=== PATIENT | male | born 1980 | race Caucasian/White ===

== ENCOUNTER 2017-08-21 14:55 | Emergency (ER) | payer OTHER, SELFPAY | END 2017-08-21 18:56 | disposition left against medical advice (07) | PROVIDERS: Emergency Provider Emergency Medicine; Visit Provider Emergency Medicine | DX: K57.32 Diverticulitis of large intestine without perforation or abscess without bleeding (principal); Z88.6 Allergy status to analgesic agent; F17.210 Nicotine dependence, cigarettes, uncomplicated; K59.01 Slow transit constipation | CPT/HCPCS: 36415; 74022; 74177; 80053; 81001; 83690; 85025; 87040; 87086; 96365; 96367; 96375; 96376; 99284; J1335; Q9967 ==

== ENCOUNTER 2017-08-22 18:46 | Observation (INO) | payer OTHER, SELFPAY | END 2017-08-23 13:54 | disposition home or self-care (01) | PROVIDERS: Admitting Provider Internal Medicine Adolescent Medicine; Emergency Provider Emergency Medicine; Visit Provider Internal Medicine Adolescent Medicine | DX: K57.92 Diverticulitis of intestine, part unspecified, without perforation or abscess without bleeding (principal); Z72.0 Tobacco use | CPT/HCPCS: 80053; 81001; 83690; 85025; 96365; 96375; 99285; G0378; J1956; J2405 ==

== ENCOUNTER 2019-12-12 12:00 | Emergency (ER) | payer OTHER, SELFPAY ==
[2019-12-12 12:01] VITALS: BP 131/75; PULSE 96; RESP 18; TEMP 36.8; O2SAT 98; BMI 41.1
--- NOTE | 2019-12-12 12:20 | CT_ITS ---
PROCEDURE: CT ABDOMEN PELVIS WO CON CLINICAL INDICATION: ABD PAIN COMPARISON: ABDPELW/O CT ABD PELVIS W/O CONTRAST from 09/29/[address] ABD PELVIS W/ CONTRAST from 08/21/2017 TECHNIQUE: Axial images obtained with sagittal and coronal reformats. All CT scans at the facility use one or more dose reduction, viz: automated exposure control, ma/kV adjustment per patient size (including targeted exams where dose is matched to indication, i.e. head), or iterative reconstruction technique. FINDINGS: LOWER THORAX: No acute finding ABDOMEN & PELVIS: Fatty liver. No focal liver lesion evident. The gallbladder adrenal glands, and pancreas have an unremarkable unenhanced CT appearance. There are 2 small hypodensities of the spleen at 4 and 6 mm. These are nonspecific. No renal or ureteral calculi. No hydronephrosis. No evidence of appendicitis. There is diverticulosis of the sigmoid colon. There is minimal haziness of the pericolic fat. Some of this could be scarring from prior diverticulitis as seen on 08/21/2017. Mild acute diverticulitis is also considered. No abscess or perforation. No acute bony findings. IMPRESSION: Do that all the 1. Sigmoid diverticulosis with minimal stranding of the pericolic fat in the central pelvic region slightly eccentric to the left which could be related to scarring or mild diverticulitis. No abscess or perforation. 2. At least 2 small hypodensities of the spleen nonspecific possibly due to small cysts. Dictated by: Shalom Marquez MD 12/12/2019 13:20 Electronically signed by Shalom Marquez MD in [place] 12/12/2019 13:20
[2019-12-12 12:25] LABS: Microscopic, Urine URINE MICROSCOPIC (MICROSCOPIC)
[2019-12-12 12:28] LABS: Basophils # 0.1 K/mm3 (0-0.2); Basophils % 0.6 % (0.1-2.0); Eosinophils # 0.2 K/mm3 (0.0-0.4); Eosinophils % 3.1 % (0.1-12.0); Hematocrit 46.7 % (42.0-52.0); Hemoglobin 15.5 g/dL (14.1-18.0); Lymphocytes % 25.3 % (10-50); Mean Corpuscular HGB Conc 33.3 g/dL (31.8-35.4); Mean Corpuscular Hemoglobin 30.4 pg (27.0-31.2); Mean Corpuscular Volume 91.4 fl (80-94); Mean Platelet Volume 7.3 fl (7.4-10.4); Monocytes # 0.2 K/mm3 (0.1-1.0); Monocytes % 2.7 % (1.7-9.3); Neutrophils # 5.4 K/mm3 (1.8-7.8); Neutrophils % 68.2 % (37.0-80.0); Platelet Count 267 K/mm3 (142-424); Red Blood Count 5.12 M/mm3 (4.60-6.20); Red Cell Distribution Width 14.2 % (11.5-17.5); White Blood Count 7.9 K/mm3 (4.8-10.8)
[2019-12-12 12:33] LABS: Chloride 101 mmol/L (98-107); Potassium 4.3 mmoL/L (3.5-5.1); Sodium 138 mmol/L (136-145)
[2019-12-12 12:36] LABS: Alanine Aminotransferase 56 U/L (12-78); Alkaline Phosphatase 66 U/L (38-126); Amylase 52 U/L (30-110); Anion Gap 13.3 mEq/L (5-15); Aspartate Amino Transferase 41 U/L (17-59); Bilirubin,Total 0.4 mg/dl (0.2-1.3); Blood Urea Nitrogen 11 mg/dl (9-20); Calcium 9.1 mg/dl (8.4-10.2); Carbon Dioxide 28 mmol/L (22.0-30.0); Creatinine Clearance Estimated 228 mL/min (50-200); Estimated Glomerular Filt Rate 94 ml/min (>60); GFR (African American) 114 ML/MIN (>60); Glucose 135 mg/dl (74-100); Lipase 43 U/L (23-300)
[2019-12-12 12:37] LABS: Albumin Level 4.4 g/dl (3.5-5.0); Albumin/Globulin Ratio 1.5 (1.1-1.8); Total Protein,Serum 7.4 g/dl (6.3-8.2)
--- NOTE | 2019-12-12 12:42 | HMH.EDGENADL ---
ED Disposition Clinical Impression: Sigmoid diverticulitis Disposition: Home, Self-Care Condition on Discharge: Good Instructions: DI for Diverticulitis Additional Instructions: Additional instructions for ABDOMINAL PAIN: See your physician as soon as possible for further evaluation. Return immediately if worsening abdominal pain, vomiting, shortness of breath, fever, vomiting of blood or abdominal distention. Additional instructions for CONTROLLED SUBSTANCES: You have been prescribed a medication that is a controlled substance. Controlled substances include pain medications known as opiates and sedative nerve medications known as benzodiazepines. Tramadol, fioricet, and gabapentin are also controlled substances. Some common opiates include: Codeine (such as Tylenol #3) Hydrocodone (Vicodin, Lortab, Lorcet, [place]) Oxycodone (Percocet, Percodan, Oxycodone, Oxy IR) Some common benzodiazepines include: Diazepam (Valium) Lorazepam (Ativan) Alprazolam (Xanax) Clonazepam (Klonopin) Oxazepam (Serax) All of these controlled substances are highly addictive and frequently abused. Misuse can and frequently does lead to addiction as well as overdose and . Medication should be stored in a locked cabinet or other secure storage unit. Do not store the medication in a motor vehicle. Short term supplies, 3 days or less, are prescribed because of the highly addictive nature of the medication. Any of the controlled substance medication NOT taken should be disposed of properly and NOT SAVED. The recommended method of disposing of unused medications is: Place the medicines in a sealable plastic bag. If the medicine is a solid, crush it or add water to dissolve it. Add something undesirable (cat litter, coffee grounds, etc.) Dispose of sealed bag in household trash Do not flush or pour unused medicines down a sink or drain. Controlled substances should not be shared, given away or sold. Because of the addictive nature and frequent abuse, these medications are sometimes stolen. These medications should be kept in a safe place where they cannot be stolen. Do not keep them in your car or purse. Lost or stolen prescriptions for controlled substances WILL NOT BE REFILLED in this emergency department, regardless of whether a police report was filed. Prescriptions: Hydrocod/Acet 5/325 mg [[place] 5/325mg tablet] 1 tab PO Q6HP PRN #10 tab PRN Reason: Pain Transmission Status: Sent to [facility] Ciprofloxacin HCl [Ciprofloxacin 500mg Tab] 500 mg PO BID #20 tab Transmission Status: Pending to [facility] metroNIDAZOLE [Flagyl] 500 mg PO TID #30 tab Transmission Status: Pending to [facility] Referrals: Provider,Referral, [Primary Care Provider] - - Critical Care Critical Care Time: No Attestation: On 12/12/19, the high probability of a clinically significant, sudden or life threatening deterioration of the following system(s) required my full and direct attention, intervention and personal management. The time I documented below is in addition to time spent performing reported procedures but includes the following listed in this critical care notation. Medical Decision Making - Eduardo Inquiry Pt receiving controlled substance: Yes Eduardo was queried for this patient: Yes Reference #:: [id number] Risks and benefits of using a controlled substance: were discussed with pt by me Comment: 1 rx norco, Mar 2019 Vital Signs: 12/12/19 12:01 Temperature 98.2 F Temperature Source Oral Pulse Rate [Right] 96 H Respiratory Rate 18 Blood Pressure [Right Arm] 131/75 Blood Pressure Mean [Right Arm] 93 02 Sat by Pulse Oximetry 98 - Lab Data Lab Results 12/12/19 12:15: Urine Color Yellow, Urine Appearance Clear, Urine pH 6.5, Ur Specific [place] 1.025, Urine Protein Negative, Urine Glucose (UA) Negative, Urine Ketones Negative, Urine Blood 2+, Urine Nitrate Negative, Urine Bili
[2019-12-12 12:45] LABS: Appearance,Urine CLEAR (Clear); Bilirubin,Urine Negative (Negative); Blood, Urine 2+ (Negative); Color,Urine YELLOW (Yellow); Glucose,Urine (UA) Negative (Negative); Ketones,Urine Negative (Negative); Leukocyte Esterase,Urine Negative (Negative); Nitrate,Urine Negative (Negative); PH,Urine 6.5 (5.0-8.5); Protein,Urine Negative (Negative); Specific Gravity, Urine 1.025 (1.005-1.030); Urobilinogen,Urine 0.2 EU/dl (0.2)
--- NOTE | 2019-12-12 12:57 | PC.NURSE ---
Satya salcedo advised pt refused contrast with ct
[2019-12-12 13:31] LABS: Bacteria,Urine Trace /lpf; Squamous Epithelial Cell,Urine Occasional #/hpf (0-5); WBC,Urine Occasional #/hpf (0-3)
[2019-12-12 14:11] VITALS: BP 140/86; PULSE 72; RESP 16; TEMP 36.7; O2SAT 98
== END 2019-12-12 14:14 | disposition home or self-care (01) ==
PROVIDERS: Emergency Provider Emergency Medicine
DX: K57.32 Diverticulitis of large intestine without perforation or abscess without bleeding (principal); F17.210 Nicotine dependence, cigarettes, uncomplicated; I10 Essential (primary) hypertension
CPT/HCPCS: 74176; 80053; 81001; 82150; 83690; 85025; 96365; 96375; 99283; J2405

== ENCOUNTER 2020-02-20 12:03 | Emergency (ER) | payer OTHER, SELFPAY ==
--- NOTE | 2020-02-20 12:03 | ECG_ITS ---
APPROVED REPORT Exam: Resting ECG HR:93 bpm ECG Measurements Heart Rate 93 AXES NH 164 P 65 QRSd 84 QRS 37 QT 350 T 51 QTc 435 <Conclusion> Normal sinus rhythm Late R-wave progression, noticed in 2013 Abnormal ECG Electronically signed by : Kike Spence, 02/26/2020 12:08:17
[2020-02-20 12:04] VITALS: BP 129/69; PULSE 98; RESP 20; TEMP 36.9; O2SAT 98; BMI 42.0
--- NOTE | 2020-02-20 12:05 | XR_ITS ---
PROCEDURE: XR CHEST 2V CLINICAL HISTORY: Chest Pain COMPARISON: CXR CHEST(2 VIEWS-NOT PORTABLE) from 12/12/2013 CXR CHEST(2 VIEWS-NOT PORTABLE) from 12/28/2015 XR CHEST 2V from 11/04/2019 FINDINGS: The cardiomediastinal silhouette and pulmonary vascularity are within normal limits. The lungs are clear without infiltrates, suspicious nodules, or pleural effusions. No acute bony abnormalities. IMPRESSION: No acute findings. Dictated by: Mika Bryant 02/20/2020 13:46 Electronically signed by Mika Bryant in [place] 02/20/2020 13:46
[2020-02-20 12:24] LABS: Basophils # 0.1 K/mm3 (0-0.2); Basophils % 0.5 % (0.1-2.0); Eosinophils # 0.2 K/mm3 (0.0-0.4); Hematocrit 46.6 % (42.0-52.0); Hemoglobin 15.5 g/dL (14.1-18.0); Lymphocytes # 2.3 K/mm3 (0.7-4.5); Lymphocytes % 23.9 % (10-50); Mean Corpuscular HGB Conc 33.3 g/dL (31.8-35.4); Mean Corpuscular Hemoglobin 30.9 pg (27.0-31.2); Mean Platelet Volume 7.2 fl (7.4-10.4); Monocytes # 0.3 K/mm3 (0.1-1.0); Monocytes % 2.9 % (1.7-9.3); Neutrophils # 6.8 K/mm3 (1.8-7.8); Neutrophils % 70.6 % (37.0-80.0); Platelet Count 297 K/mm3 (142-424); Red Blood Count 5.02 M/mm3 (4.60-6.20); White Blood Count 9.6 K/mm3 (4.8-10.8)
[2020-02-20 12:36] LABS: Chloride 99 mmol/L (98-107); Sodium 139 mmol/L (136-145)
[2020-02-20 12:39] LABS: Blood Urea Nitrogen 17 mg/dl (9-20); Carbon Dioxide 31 mmol/L (22.0-30.0); Creatinine Clearance Estimated 129 mL/min (50-200); Estimated Glomerular Filt Rate 94 ml/min (>60); GFR (African American) 114 ML/MIN (>60); Glucose 115 mg/dl (74-100)
[2020-02-20 12:40] LABS: Calcium 9.3 mg/dl (8.4-10.2)
[2020-02-20 12:52] LABS: Troponin I < 0.01 ng/ml (0.00-0.034)
--- NOTE | 2020-02-20 13:48 | HMH.EDCP ---
ED Disposition Clinical Impression: Non-compliance, Chest pain Disposition: Home, Self-Care Condition on Discharge: Good Instructions: DI for Atypical Chest Pain Additional Instructions: Please return to the ED when you feel your except our treatment plans and recommendations otherwise there is no point of view coming to the facility for any reason. Referrals: Provider,Referral, [Primary Care Provider] - - Critical Care Critical Care Time: No Attestation: On 02/20/20, the high probability of a clinically significant, sudden or life threatening deterioration of the following system(s) required my full and direct attention, intervention and personal management. The time I documented below is in addition to time spent performing reported procedures but includes the following listed in this critical care notation. Medical Decision Making - Medical Records Medical records reviewed: Yes: I reviewed the patient's medical records. - Eduardo Inquiry Pt receiving controlled substance: No Vital Signs: 02/20/20 12:04 Temperature 98.4 F Temperature Source Oral Pulse Rate [Left Radial] 98 H Respiratory Rate 20 Blood Pressure [Right Arm] 129/69 Blood Pressure Mean [Right Arm] 89 Blood Pressure Position [Right Arm] Sitting 02 Sat by Pulse Oximetry 98 Oxygen Delivery Method Room Air - Lab Data Lab results reviewed: Yes: I reviewed the patient's lab results. Lab Results 02/20/20 12:15: WBC 9.6, RBC 5.02, Hgb 15.5, Hct 46.6, MCV 93.0, MCH 30.9, MCHC 33.3, RDW 15.0, Plt Count 297, MPV 7.2 L, Neut % (Auto) 70.6, Lymph % (Auto) 23.9, [place] % (Auto) 2.9, Eos % (Auto) 2.0, Baso % (Auto) 0.5, Neut # (Auto) 6.8, Lymph # (Auto) 2.3, [place] # (Auto) 0.3, Eos # (Auto) 0.2, Baso # (Auto) 0.1 02/20/20 12:15: Sodium 139, Potassium 4.0, Chloride 99, Carbon Dioxide 31 H, Anion Gap 13.0, BUN 17, Creatinine 0.90, Estimated Creat Clear 129, Estimated GFR 94, Est GFR ( Amer) 114, Glucose 115 H, Calcium 9.3, Troponin I < 0.01 Result diagrams: 02/20/20 12:15 02/20/20 12:15 Orders (Tests/Meds): ED MEDICATIONS Discontinued Medications Generic Name Dose Route Start Last Admin Trade Name Lyndon PRWilber Reason Stop Dose Admin Aspirin 324 mg 02/20/20 12:13 02/20/20 12:35 Aspirin 81mg Chewable Tablet PO 02/20/20 12:14 324 mg ONCE ONE Administration Nitroglycerin 0.4 mg 02/20/20 12:13 02/20/20 12:35 Nitrostat 0.4mg Sl Tablet SL 02/20/20 12:14 Not Given ONCE ONE ORDERS Category Date Time Status CT angio chest Stat Cat Scan 02/20/20 12:05 Ordered XR chest 2V Stat Exams 02/20/20 12:05 Taken Troponin I Q3H Lab 02/20/20 15:15 Ordered Troponin I Q3H Lab 02/20/20 18:15 Ordered Medical Decision Narrative: Patient refused to have nitro applied to his chest patient also refused to have his CAT scan of his chest since patient is can be noncompliant with any other treatment no further work-up needs to be done at this time and patient can leave AGAINST MEDICAL ADVICE. Chest Pain HPI - General Chief Complaint: Chest Pain Stated Complaint: Chest Pain Time Seen by Provider: 02/20/20 13:00 Mode of Arrival: Ambulatory Limitations: No Limitations Description of Symptoms (Recalled from ER Triage Doc. by RN): to ed per pvt car with c/o chest pain radiating to lt shoulder starting wednesday c/o generalized weakness and pain, c/o sob, diaphoresis. states pain worse with exertion and gets some relief with rest. denies any lower leg pain - History of Present Illness MD complaint: chest pain Onset (ago): hour(s) Duration: constant Activity at onset: during rest Pain location: substernal Severity: mild Severity scale (1-10): 2 Quality: heaviness Pain radiation: none Relieving factors: nothing Exacerbating factors: nothing Risk Factors for CAD: Hypertension - Related Data Home Medications Medication Instructions Recorded Confirmed No Known Home Medications 02/20/20 02/20/20 Allergies Al
[2020-02-20 14:16] VITALS: BP 154/92; PULSE 78; RESP 16; TEMP 36.8; O2SAT 99
== END 2020-02-20 14:21 | disposition home or self-care (01) ==
PROVIDERS: Emergency Provider Family Medicine
DX: R07.9 Chest pain, unspecified (principal); I10 Essential (primary) hypertension; F17.210 Nicotine dependence, cigarettes, uncomplicated; Z88.5 Allergy status to narcotic agent
CPT/HCPCS: 71046; 80048; 84484; 85025; 93005; 99282; 99283

== ENCOUNTER 2020-04-16 23:21 | Emergency (ER) | payer OTHER, MEDICAID, SELFPAY ==
[2020-04-16 23:31] VITALS: BP 138/107; PULSE 109; RESP 17; TEMP 36.7; O2SAT 98; BMI 41.1
[2020-04-16 23:50] LABS: Strep Scrn Group A (Rapid) Negative (Negative)
[2020-04-17] VITALS: BP 140/94; PULSE 101; RESP 18; O2SAT 98
[2020-04-17 00:30] VITALS: BP 134/92; PULSE 99; RESP 17; O2SAT 99
[2020-04-17 01:00] VITALS: BP 132/95; PULSE 94; RESP 18; O2SAT 96
--- NOTE | 2020-04-17 01:22 | HMH.EDURI ---
ED Disposition Clinical Impression: Pharyngitis Qualifiers: Pharyngitis/tonsillitis etiology: unspecified etiology Qualified Code(s): J02.9 - Acute pharyngitis, unspecified Disposition: Home, Self-Care Condition on Discharge: Good Instructions: Sore Throat Additional Instructions: gargle and see pcp or ent if gets worse Prescriptions: cephALEXin [Keflex 500mg Cap] 500 mg PO TID #30 cap Transmission Status: [facility] to [facility] predniSONE [Prednisone 20mg Tab] 20 mg PO BID #10 tab Transmission Status: P[facility] to [facility] Referrals: PCP,Анна [Primary Care Provider] - Perez Owusu MD [Staff Physician] - - Critical Care Critical Care Time: No Attestation: On 04/16/20, the high probability of a clinically significant, sudden or life threatening deterioration of the following system(s) required my full and direct attention, intervention and personal management. The time I documented below is in addition to time spent performing reported procedures but includes the following listed in this critical care notation. Medical Decision Making - Medical Records Medical records reviewed: Yes: I reviewed the patient's medical records. - Eduardo Inquiry Pt receiving controlled substance: No Vital Signs: 04/16/20 23:31 Temperature 98.1 F Temperature Source Oral Pulse Rate [Right Brachial] 109 H Respiratory Rate 17 Blood Pressure [Right Arm] 138/107 H Blood Pressure Mean [Right Arm] 117 Blood Pressure Source [Right Arm] Automatic Cuff Blood Pressure Position [Right Arm] Sitting 02 Sat by Pulse Oximetry 98 Oxygen Delivery Method Room Air - Lab Data Lab results reviewed: Yes: I reviewed the patient's lab results. Lab Results 04/16/20 23:30: Influenza Type A Ag Negative, Influenza Type B Ag Negative 04/16/20 23:30: Group A Strep Rapid Negative Orders (Tests/Meds): ORDERS Category Date Time Status Strep Screen Confirmation Stat Micro 04/16/20 23:30 Received URI/Sore Throat HPI - General Chief Complaint: PAIN Stated Complaint: Feels like something is stuck in throat Time Seen by Provider: 04/17/20 00:00 Mode of Arrival: Family Vehicle Source of Information: Patient, Medical Record Limitations: No Limitations Description of Symptoms (Recalled from ER Triage Doc. by RN): throat raw and sore x 4 days - History of Present Illness HPI Narrative: sore throat over the last few days - no rash or cough - no dysphonia MD Complaint: sore throat Onset (ago): day(s) Duration: constant Severity: moderate Able to tolerate fluids by mouth: Yes Associated symptoms: denies other symptoms Treatments prior to arrival: none - Related Data Previous Rx's Medication Instructions Recorded cephALEXin [Keflex 500mg Cap] 500 mg PO TID #30 cap 04/17/20 predniSONE [Prednisone 20mg 20 mg PO BID #10 tab 04/17/20 Tab] Allergies Allergy/AdvReac Type Severity Reaction Status Date / Time codeine [CODEINE] Allergy Unknown Verified 11/28/18 01:51 naproxen [NAPROXEN] Allergy Unknown Verified 11/28/18 01:51 [facility] History - Hepatitis A Screen Drug use history?: No High risk sexual behaviors?: No History of sexually transmitted infection?: No Currently employed?: No Childcare worker?: No Do you have indoor plumbing?: Yes Do you have electricity?: Yes Attestation statement:: This patient has been screened for Hepatitis A risk factors. I have reviewed the patient's past medical history: Yes - Social History Smoking Status: Current every day smoker Tobacco Type: cigarettes # Packs/Day (cigarettes): 1 Alcohol Intake: never Occupational Status: other Housing: other Household Members: other ROS Obtained: Yes All systems reviewed & no additional complaints - Constitutional Constitutional: Denies fever(s) - Eyes Eyes: Denies change in vision - ENT Ears, Nose, Mouth, and Throat: Reports pain with swallowing, Reports sore throat, Denies throat swelling
[2020-04-17 01:45] VITALS: BP 132/75; PULSE 111; RESP 16; TEMP 36.6; O2SAT 98
== END 2020-04-17 01:47 | disposition home or self-care (01) ==
PROVIDERS: Emergency Provider Emergency Medicine
DX: J02.9 Acute pharyngitis, unspecified (principal); F17.210 Nicotine dependence, cigarettes, uncomplicated; Z88.6 Allergy status to analgesic agent
CPT/HCPCS: 87275; 87276; 87430; 96372; 99283

== ENCOUNTER 2020-04-29 12:42 | Emergency (ER) | payer OTHER, MEDICAID, SELFPAY ==
--- NOTE | 2020-04-29 12:51 | HMH.EDABDPAI ---
ED Disposition Clinical Impression: Diverticulitis Constipation Qualifiers: Constipation type: slow transit constipation Qualified Code(s): K59.01 - Slow transit constipation Disposition: Home, Self-Care Condition on Discharge: Good Instructions: DI for Diverticulitis Prescriptions: Amoxicillin/Potassium Clav [Augmentin 875-125 Tablet] 1 tab PO Q12H #14 tab Prescription Printed Hydrocodone/Acetaminophen [Greg[place] 5-325 Tablet] 1 each PO Q4-6H PRN #9 tab PRN Reason: pain Prescription Printed Referrals: PCP,No [Primary Care Provider] - 3 days - Critical Care Critical Care Time: No Attestation: On , the high probability of a clinically significant, sudden or life threatening deterioration of the following system(s) required my full and direct attention, intervention and personal management. The time I documented below is in addition to time spent performing reported procedures but includes the following listed in this critical care notation. Medical Decision Making - Medical Records Medical records reviewed: Yes: I reviewed the patient's medical records. - Eduardo Inquiry Pt receiving controlled substance: Yes Eduardo was queried for this patient: No Risks and benefits of using a controlled substance: were discussed with pt by me Vital Signs: 04/29/20 12:59 Temperature 98.6 F Temperature Source Oral Pulse Rate [Right Radial] 104 H Respiratory Rate 15 Blood Pressure [Right Arm] 164/92 H Blood Pressure Mean [Right Arm] 116 02 Sat by Pulse Oximetry 97 Oxygen Delivery Method Room Air - Lab Data Lab results reviewed: Yes: I reviewed the patient's lab results. Lab Results 04/29/20 13:00: Urine Color Yellow, Urine Appearance Clear, Urine pH 6.0, Ur Specific [place] 1.025, Urine Protein Negative, Urine Glucose (UA) Negative, Urine Ketones Negative, Urine Blood 1+, Urine Nitrate Negative, Urine Bilirubin Negative, Urine Urobilinogen 0.2, Ur Leukocyte Esterase Negative, Urine RBC 3-5, Urine WBC None, Ur Squamous Epith Cells Occasional, Urine Bacteria None 04/29/20 13:30: WBC 11.8 H, RBC 4.91, Hgb 15.5, Hct 45.5, MCV 92.7, MCH 31.6 H, MCHC 34.1, RDW 15.0, Plt Count 254, MPV 8.1, Neut % (Auto) 74.8, Lymph % (Auto) 19.7, [place] % (Auto) 3.0, Eos % (Auto) 1.9, Baso % (Auto) 0.5, Neut # (Auto) 8.8 H, Lymph # (Auto) 2.3, [place] # (Auto) 0.4, Eos # (Auto) 0.2, Baso # (Auto) 0.1 04/29/20 13:30: Sodium 138, Potassium 4.3, Chloride 102, Carbon Dioxide 30, Anion Gap 10.3, BUN 10, Creatinine 0.90, Estimated Creat Clear 203, Estimated GFR 94, Est GFR ( Amer) 114, Glucose 155 H, Calcium 9.2, Total Bilirubin 0.5, AST 32, ALT 60, Alkaline Phosphatase 83, Total Protein 6.8, Albumin 3.9, Globulin 2.9, Albumin/Globulin Ratio 1.3 Result diagrams: 04/29/20 13:30 04/29/20 13:30 Orders (Tests/Meds): ED MEDICATIONS Generic Name Dose Route Start Last Admin Trade Name Freq PRN Reason Stop Dose Admin Sodium Chloride 1,000 mls @ 999 mls/hr 04/29/20 13:15 04/29/20 13:32 Sod Chlor 0.9% 1000ml Bag IV 04/29/20 14:15 999 mls/hr .Q1H1M PAYAL Administration Discontinued Medications Generic Name Dose Route Start Last Admin Trade Name Freq PRN Reason Stop Dose Admin Ketorolac Tromethamine 15 mg 04/29/20 13:11 04/29/20 13:32 Toradol 30mg/Ml Vial IV 04/29/20 13:12 15 mg ONCE ONE Administration ORDERS Category Date Time Status Lactic Acid Stat Lab 04/29/20 13:07 Ordered - CT Data CT Scan: Abdomen, Pelvis Time Received: 14:[address] Reviewed: Yes: I have reviewed the patient's CT results Findings Narrative: Acute diverticulitis with no perforation or abscess Medical Decision Narrative: Patient with slight leukocytosis and CT scan which shows acute diverticulitis with no perforation or abscess. No appendicitis, bowel obstruction. Urinalysis with no signs of infection. Given prescription for Augmentin and pain medications, recommended [id number] stool softeners in the interim as he has
[2020-04-29 12:59] VITALS: BP 164/92; PULSE 104; RESP 15; TEMP 37; O2SAT 97; BMI 36.6
[2020-04-29 13:07] LABS: Microscopic, Urine URINE MICROSCOPIC (MICROSCOPIC)
--- NOTE | 2020-04-29 13:07 | CT_ITS ---
PROCEDURE: CT ABDOMEN PELVIS WO CON CLINICAL INDICATION: abd pain, diverticulitis? Lower abdominal pain COMPARISON: CT CT ABDOMEN PELVIS WO CON from 12/12/2019 TECHNIQUE: Axial images obtained with sagittal and coronal reformats. All CT scans at the facility use one or more dose reduction, viz: automated exposure control, ma/kV adjustment per patient size (including targeted exams where dose is matched to indication, i.e. head), or iterative reconstruction technique. FINDINGS: LOWER THORAX: No acute finding ABDOMEN & PELVIS: Fatty liver. Splenomegaly at 15 cm. The adrenal glands and pancreas have an unremarkable appearance. No renal or ureteral calculi. No hydronephrosis. No intestinal obstruction. No evidence of appendicitis. There is diverticulosis of the sigmoid colon. There is thickening and focal stranding of the pericolic fat in the proximal to mid sigmoid region in the left pelvic area consistent with acute diverticulitis. No evidence of abscess or perforation. No acute bony findings IMPRESSION: 1. Acute diverticulitis of the sigmoid colon. No abscess or perforation. 2. Fatty liver with splenomegaly Dictated by: Shalom Marquez MD 04/29/2020 14:03 Shalom Marquez MD in [place] 04/29/2020 14:03
[2020-04-29 13:08] LABS: Appearance,Urine CLEAR (Clear); Bilirubin,Urine Negative (Negative); Blood, Urine 1+ (Negative); Color,Urine YELLOW (Yellow); Glucose,Urine (UA) Negative (Negative); Ketones,Urine Negative (Negative); Leukocyte Esterase,Urine Negative (Negative); Nitrate,Urine Negative (Negative); Protein,Urine Negative (Negative); Specific Gravity, Urine 1.025 (1.005-1.030); Urobilinogen,Urine 0.2 EU/dl (0.2)
[2020-04-29 13:36] LABS: Basophils # 0.1 K/mm3 (0-0.2); Basophils % 0.5 % (0.1-2.0); Eosinophils # 0.2 K/mm3 (0.0-0.4); Eosinophils % 1.9 % (0.1-12.0); Hematocrit 45.5 % (42.0-52.0); Hemoglobin 15.5 g/dL (14.1-18.0); Lymphocytes # 2.3 K/mm3 (0.7-4.5); Lymphocytes % 19.7 % (10-50); Mean Corpuscular HGB Conc 34.1 g/dL (31.8-35.4); Mean Corpuscular Hemoglobin 31.6 pg (27.0-31.2); Mean Corpuscular Volume 92.7 fl (80-94); Mean Platelet Volume 8.1 fl (7.4-10.4); Monocytes # 0.4 K/mm3 (0.1-1.0); Neutrophils # 8.8 K/mm3 (1.8-7.8); Neutrophils % 74.8 % (37.0-80.0); Platelet Count 254 K/mm3 (142-424); Red Blood Count 4.91 M/mm3 (4.60-6.20); White Blood Count 11.8 K/mm3 (4.8-10.8)
[2020-04-29 13:44] LABS: Chloride 102 mmol/L (98-107); Sodium 138 mmol/L (136-145)
[2020-04-29 13:45] LABS: Potassium 4.3 mmoL/L (3.5-5.1)
[2020-04-29 13:47] LABS: Alanine Aminotransferase 60 U/L (12-78); Alkaline Phosphatase 83 U/L (38-126); Aspartate Amino Transferase 32 U/L (17-59); Bilirubin,Total 0.5 mg/dl (0.2-1.3); Blood Urea Nitrogen 10 mg/dl (9-20); Creatinine Clearance Estimated 203 mL/min (50-200); Estimated Glomerular Filt Rate 94 ml/min (>60); GFR (African American) 114 ML/MIN (>60)
[2020-04-29 13:48] LABS: Albumin Level 3.9 g/dl (3.5-5.0); Albumin/Globulin Ratio 1.3 (1.1-1.8); Anion Gap 10.3 mEq/L (5-15); Calcium 9.2 mg/dl (8.4-10.2); Carbon Dioxide 30 mmol/L (22.0-30.0); Globulin 2.9 g/dL (1.3-3.2); Glucose 155 mg/dl (74-100); Total Protein,Serum 6.8 g/dl (6.3-8.2)
--- NOTE | 2020-04-29 13:52 | PC.NURSE ---
PT IS IN RAD
[2020-04-29 14:06] LABS: Squamous Epithelial Cell,Urine Occasional #/hpf (0-5)
[2020-04-29 14:20] VITALS: BP 174/99; PULSE 86; RESP 18; TEMP 36.7; O2SAT 98
== END 2020-04-29 14:22 | disposition home or self-care (01) ==
PROVIDERS: Emergency Provider Emergency Medicine
DX: K57.92 Diverticulitis of intestine, part unspecified, without perforation or abscess without bleeding (principal); K59.01 Slow transit constipation; F17.210 Nicotine dependence, cigarettes, uncomplicated; Z88.6 Allergy status to analgesic agent
CPT/HCPCS: 74176; 80053; 81001; 85025; 96365; 96375; 99283

== ENCOUNTER 2020-06-24 16:32 | Emergency (ER) | payer MEDICAID, SELFPAY ==
[2020-06-24 16:40] VITALS: BP 142/81; PULSE 100; RESP 18; TEMP 36.7; O2SAT 96; BMI 39.8
[2020-06-24 17:30] VITALS: BP 105/75; PULSE 116; RESP 22; TEMP 36.9; O2SAT 97; BMI 39.8
[2020-06-24 17:46] LABS: UTC Influenza A Antigen Negative (Negative); UTC Influenza B Antigen Negative (Negative)
--- NOTE | 2020-06-24 17:58 | HMH.EDUTC ---
[facility] [place] Disposition Clinical Impression: Bronchitis Sinusitis Qualifiers: Sinusitis location: unspecified location Chronicity: unspecified Qualified Code(s): J32.9 - Chronic sinusitis, unspecified Disposition: Home, Self-Care Condition on Discharge: Good Instructions: Sinusitis, Sinus Headache, Acute Bronchitis, DI for Sinusitis, Albuterol, Azithromycin Additional Instructions: *Monitor Temp, Over the counter Motrin or Tylenol as directed/as needed Tylenol every 4 hours and Motrin every 6 hours (as long as your family doctor has told you that you can take it) for fever or pain. and straight to ER if unable to lower temp less than 101.0 after medication given *Warm salt water gargles may help to soothe the throat *Throat Lozenges *Warm fluids like tea with honey may help to soothe the throat *Sleep elevated *Humidifier/Vaporizer *Flonase 2 sprays in each nostril daily but be aware that it may take 2-3 days before you notice improvement Take medication as prescribed ? Humidifier/vaporizer or hot steamy shower ? Inhaler every 4-6 hours as needed like we discussed. If unsure how to use it, ask pharmacist to demonstrate how. Should help open airways and improve cough, wheezing, and shortness of breath ? Mucinex during the day for your cough and cough suppressant only at night. Be sure to drink lots of water. Insurance may not cover a prescriptions for mucinex. Might be cheaper to get 400mg tablets and take 2 tablet in the morning, mid-day and evening with lots of water. Your throat swab was sent for culture. Those results are typically sent to your primary care. Be sure to follow up in 2-3 days with your family doctor/primary care physician if no improvement so they can review those result and treat if necessary. If you don?t have a primary care doctor, I recommend you get one but in the mean time, you will have to return to a walk in clinic Follow up IMMEDIATELY for new or worsening symptoms or no Noticeable improvement over the next 48-72 hours. 911 for difficulty breathing or swallowing You was tested for today for COVID19 your test result should be back later this evening, you may call back later this evening to see if your test results are back and the result You was given a handout with instructions for Self Quarantine and Self isolation for while you wait on test results and what to do if they are positive Prescriptions: Albuterol Sulfate [Proventil-HFA 90mcg/puff Inh] 1 - 2 puffs IH Q4HP PRN #1 inh PRN Reason: Shortness Of Breath Transmission Status: Received by [facility] Fluticasone Propionate [Flonase 50mcg nasal spray 16gm] 1 spr NS DAILY #1 bottle Transmission Status: Received by [facility] guaiFENesin [Mucinex 600mg tablet] 600 mg PO BID #10 tab.er.12h Transmission Status: Received by [facility] Azithromycin [Z-Jan 250mg Tab] 250 mg PO DIRECTED #6 tab Transmission Status: Received by [facility] Referrals: PCP,No [Primary Care Provider] - As needed Time of Disposition: 18:15 Medical Decision Making - Eduardo Inquiry Pt receiving controlled substance: No Eduardo was queried for this patient: No Vital Signs: 06/24/20 16:40 06/24/20 17:30 06/24/20 18:17 Temperature 98.0 F 98.5 F 98.5 F Temperature Source Oral Oral Pulse Rate 116 H Pulse Rate [Radial] 100 H 116 H Respiratory Rate 18 22 22 Blood Pressure 105/75 L Blood Pressure [Right Arm] 142/81 H 105/75 L Blood Pressure Mean [Right Arm] 101 85 Blood Pressure Source [Right Arm] Automatic Cuff Automatic Cuff Blood Pressure Position [Right Arm] Sitting Sitting 02 Sat by Pulse Oximetry 96 97 Oxygen Delivery Method Room Air Room Air - Lab Data Lab results reviewed: Yes: I reviewed the patient's lab results. Lab Results 06/24/20 17:45: Influenza Type A Ag Negative, Influenza Type B Ag Negative Orders (Tests/Meds): ED MEDICATIONS Discontinued Medications
[2020-06-24 18:17] VITALS: BP 105/75; PULSE 116; RESP 22; TEMP 36.9; O2SAT 97
[2020-06-24 19:26] LABS: Adenovirus,PCR Not Detected (NotDetected); Bordetella Pertussis Not Detected (NotDetected); Chlamydophila Pneumoniae, PCR Not Detected (NotDetected); Coronavirus 19, PCR Not Detected (NotDetected); Coronavirus 229E Not Detected (NotDetected); Coronavirus NL63 Not Detected (NotDetected); Coronavirus OC43 Not Detected (NotDetected); Coronovirus HKU1,PCR Not Detected (NotDetected); Human Metapneumovirus Not Detected (NotDetected); Influenza A, PCR Not Detected (NotDetected); Influenza AH1, 2009 Not Detected (NotDetected); Influenza AH1, PCR Not Detected (NotDetected); Influenza AH3,PCR Not Detected (NotDetected); Influenza B, PCR Not Detected (NotDetected); Mycoplasma Pneumoniae, PCR Not Detected (NotDetected); Parainfluenza 1, PCR Not Detected (NotDetected); Parainfluenza 2, PCR Not Detected (NotDetected); Parainfluenza 3, PCR Not Detected (NotDetected); Parainfluenza 4, PCR Not Detected (NotDetected); Respiratory Syncytial Virus Not Detected (NotDetected)
[2020-06-25 02:25] LABS: Rhinovirus/Enterovirus Detected (NotDetected)
== END 2020-06-24 18:23 | disposition home or self-care (01) ==
PROVIDERS: Emergency Provider Nurse Practitioner
DX: J32.9 Chronic sinusitis, unspecified (principal); Z20.828 Contact with and (suspected) exposure to other viral communicable diseases; Z88.5 Allergy status to narcotic agent
CPT/HCPCS: 87581; 87633; 87798; 87804; 96372; 99202; U0003

== ENCOUNTER 2021-04-14 11:53 | Emergency (ER) | payer MEDICAID, SELFPAY ==
[2021-04-14 13:10] VITALS: BP 00/00; PULSE 0; RESP 0; TEMP -17.7; TEMP 0
== END 2021-04-14 13:12 | disposition left against medical advice (07) ==
LOC: UTC 12:00
PROVIDERS: Emergency Provider Nurse Practitioner
DX: Z53.21 Procedure and treatment not carried out due to patient leaving prior to being seen by health care provider (principal)

== ENCOUNTER 2021-12-16 00:06 | Emergency (ER) | payer SELFPAY ==
[2021-12-16 00:08] VITALS: BP 150/90; PULSE 115; RESP 16; TEMP 36.8; O2SAT 99; BMI 37.0
[2021-12-16 00:26] VITALS: BMI 37.0
[2021-12-16 00:42] LABS: Appearance,Urine CLEAR (Clear); Bilirubin,Urine Negative (Negative); Blood, Urine 2+ (Negative); Color,Urine YELLOW (Yellow); Glucose,Urine (UA) Negative (Negative); Ketones,Urine Negative (Negative); Leukocyte Esterase,Urine Negative (Negative); Microscopic, Urine URINE MICROSCOPIC (MICROSCOPIC); Nitrate,Urine Negative (Negative); Protein,Urine Negative (Negative); Urobilinogen,Urine 0.2 EU/dl (0.2)
[2021-12-16 01:02] LABS: Bacteria,Urine 1+ /lpf; Mucus,Urine 1+ /lpf
--- NOTE | 2021-12-16 01:41 | HMH.EDUROGM ---
ED Disposition Clinical Impression: STD exposure Disposition: Home, Self-Care Condition on Discharge: Good Instructions: Facts About Sexually Transmitted Infections Additional Instructions: use meds and see pcp for follow up Prescriptions: metroNIDAZOLE [metroNIDAZOLE 500mg Tablet] 500 mg PO TID #21 tab Transmission Status: Pending to [facility] Referrals: Provider,Referral, [Primary Care Provider] - - Critical Care Critical Care Time: No Attestation: On 12/16/21, the high probability of a clinically significant, sudden or life threatening deterioration of the following system(s) required my full and direct attention, intervention and personal management. The time I documented below is in addition to time spent performing reported procedures but includes the following listed in this critical care notation. Medical Decision Making - Medical Records Medical records reviewed: Yes: I reviewed the patient's medical records. - Eduadro Inquiry Pt receiving controlled substance: No Vital Signs: 12/16/21 00:08 Temperature 98.2 F Temperature Source Oral Pulse Rate [Right] 115 H Respiratory Rate 16 Blood Pressure [Right Arm] 150/90 H Blood Pressure Mean [Right Arm] 110 02 Sat by Pulse Oximetry 99 - Lab Data Lab results reviewed: Yes: I reviewed the patient's lab results. Lab Results 12/16/21 00:36: Urine Color Yellow, Urine Appearance Clear, Urine pH 6.0, Ur Specific [place] 1.020, Urine Protein Negative, Urine Glucose (UA) Negative, Urine Ketones Negative, Urine Blood 2+, Urine Nitrate Negative, Urine Bilirubin Negative, Urine Urobilinogen 0.2, Ur Leukocyte Esterase Negative, Urine RBC 5-10, Urine WBC 3-5, Ur Squamous Epith Cells 3-5, Urine Bacteria 1+, Urine Mucus 1+ Orders (Tests/Meds): ORDERS Category Date Time Status Rapid Plasma Reagin Ab Titer Stat Lab 12/16/21 00:43 Received Medical Decision Narrative: possible std and will treat for gc/chymadie and trich Male Urogenital HPI - General Chief complaint: Recheck/Abnormal Lab/Rx Stated complaint: Possible exposure to STD Time Seen by Provider: 12/16/21 01:41 Mode of Arrival: Ambulatory Source of Information: Patient, Medical Record Limitations: No Limitations Description of Symptoms (Recalled from ER Triage Doc. by RN): pt states told me she contracted a STD pt would like to be check for STDs - History of Present Illness HPI Narrative: possible exposure to std - no penile d/c or penile lesions MD Complaint: possible STD exposure Onset (ago): day(s) Severity: mild Reports: denies other symptoms - Related Data Sexually active: Yes Previous Rx's Medication Instructions Recorded Albuterol Sulfate [Proventil-HFA 1 - 2 puffs IH Q4HP PRN #1 inh 06/24/20 90mcg/puff Inh] Azithromycin [Z-Jan 250mg Tab] 250 mg PO DIRECTED #6 tab 06/24/20 Fluticasone Propionate [Flonase 1 spr NS DAILY #1 bottle 06/24/20 50mcg nasal spray 16gm] guaiFENesin [Mucinex 600mg tablet] 600 mg PO BID #10 tab.er.12h 06/24/20 metroNIDAZOLE [metroNIDAZOLE 500mg 500 mg PO TID #21 tab 12/16/21 Tablet] Allergies Allergy/AdvReac Type Severity Reaction Status Date / Time codeine [CODEINE] Allergy Unknown Verified 04/29/20 13:02 naproxen [NAPROXEN] Allergy Unknown Verified 04/29/20 13:02 [facility] History - Hepatitis A Screen Drug use history?: No High risk sexual behaviors?: No History of sexually transmitted infection?: No Currently employed?: No Childcare worker?: No Do you have indoor plumbing?: Yes Do you have electricity?: Yes Attestation statement:: This patient has been screened for Hepatitis A risk factors. I have reviewed the patient's past medical history: Yes Medical History: Denies:: Diabetes Mellitus Type 1, Diabetes Mellitus Type 2 Other Medical History: Reports: Other (diverticulitis) - Social History Smoking Status: Unknown if ever smoked Tobacco Type: cigarettes # Packs/
[2021-12-16 02:05] VITALS: BP 145/73; PULSE 90; RESP 16; TEMP 36.8; O2SAT 98
[2021-12-17 13:19] LABS: Rapid Plasma Reagin Ab Titer Non Reactive (NonRea<1:1)
[2021-12-17 22:20] LABS: Neisseria gonorrhoeae, NAA Negative (Negative)
== END 2021-12-16 02:07 | disposition home or self-care (01) ==
PROVIDERS: Emergency Provider Emergency Medicine
DX: Z20.2 Contact with and (suspected) exposure to infections with a predominantly sexual mode of transmission (principal)
CPT/HCPCS: 81001; 86592; 87491; 87591; 96372; 99283; J0696

== ENCOUNTER 2022-03-04 12:03 | Emergency (ER) | payer SELFPAY ==
[2022-03-04] VITALS (25 sets, daily range): BP systolic 87–130; BP diastolic 35–93; PULSE 79–97; RESP 16–20; TEMP 36.8; O2SAT 95–98; BMI 35.9
--- NOTE | 2022-03-04 12:03 | ECG_ITS ---
APPROVED REPORT Exam: Resting ECG HR:82 bpm ECG Measurements Heart Rate 82 AXES RI 178 P 64 QRSd 84 QRS 29 QT 351 T 46 QTc 390 Conclusion SINUS RHYTHM NORMAL ECG UNCONFIRMED REPORT Electronically signed by : Kike Spence MD 03/05/2022 17:41:32
--- NOTE | 2022-03-04 12:47 | XR_ITS ---
FINAL REPORT CLINICAL HISTORY: chest pain. family hx of CT COMPARISON: February 20, 2020 FINDINGS: Two views of the chest were obtained. The heart size and pulmonary vascularity are within normal limits. The mediastinum is normal. There are mild bibasilar opacities. There is no pneumothorax. The bony thorax is intact. IMPRESSION: Mild bibasilar opacities, favor atelectasis. Reviewed, Interpreted and Dictated by Jim Lazaro III, MD Transcribed by Tito Scott Authenticated and [facility]
--- NOTE | 2022-03-04 12:48 | HMH.EDGENADL ---
ED Disposition Clinical Impression: Atypical chest pain Disposition: Home, Self-Care Condition on Discharge: Good Instructions: DI for Atypical Chest Pain Additional Instructions: Follow-up with Dr. Strickland, cardiology, in 2 weeks. Call for appointment. Additional instructions for CHEST PAIN: See your physician as soon as possible for further evaluation. Return immediately if worsening chest pain, vomiting, shortness of breath, fever, coughing of blood. You are being provided with a list of physicians available for follow-up of your condition. Please call a physician on this list to arrange a follow-up appointment as soon as possible. Referrals: Provider,MD Humberto [Primary Care Provider] - Jagdish Strickland MD [Staff Physician] - - Critical Care Critical Care Time: No Attestation: On 03/04/22, the high probability of a clinically significant, sudden or life threatening deterioration of the following system(s) required my full and direct attention, intervention and personal management. The time I documented below is in addition to time spent performing reported procedures but includes the following listed in this critical care notation. Medical Decision Making - Eduardo Inquiry Pt receiving controlled substance: No Vital Signs: 03/04/22 12:05 03/04/22 12:31 03/04/22 13:19 Temperature 98.2 F Temperature Source Oral Pulse Rate 89 88 Pulse Rate [Left] 89 Respiratory Rate 20 16 Blood Pressure 117/56 L 128/74 Blood Pressure [Right Arm] 130/93 H Blood Pressure Mean 76 80 Blood Pressure Mean [Right Arm] 105 02 Sat by Pulse Oximetry 98 96 98 Oxygen Delivery Method Room Air Room Air 03/04/22 13:27 03/04/22 13:30 03/04/22 13:35 Temperature Temperature Source Pulse Rate 82 Pulse Rate [Left] Respiratory Rate Blood Pressure 109/60 L 117/52 L 111/52 L Blood Pressure [Right Arm] Blood Pressure Mean 73 75 65 Blood Pressure Mean [Right Arm] 02 Sat by Pulse Oximetry 96 96 96 Oxygen Delivery Method 03/04/22 13:40 03/04/22 13:45 03/04/22 13:50 Temperature Temperature Source Pulse Rate 79 84 83 Pulse Rate [Left] Respiratory Rate Blood Pressure 113/53 L 102/50 L 92/36 L Blood Pressure [Right Arm] Blood Pressure Mean 65 66 57 Blood Pressure Mean [Right Arm] 02 Sat by Pulse Oximetry 98 98 96 Oxygen Delivery Method 03/04/22 13:53 03/04/22 13:55 03/04/22 14:00 Temperature Temperature Source Pulse Rate 79 79 82 Pulse Rate [Left] Respiratory Rate Blood Pressure 112/46 L 107/52 L 101/53 L Blood Pressure [Right Arm] Blood Pressure Mean 57 62 67 Blood Pressure Mean [Right Arm] 02 Sat by Pulse Oximetry 95 96 97 Oxygen Delivery Method 03/04/22 14:11 03/04/22 14:16 03/04/22 14:20 Temperature Temperature Source Pulse Rate 84 82 Pulse Rate [Left] Respiratory Rate Blood Pressure 108/35 L 102/40 L 104/53 L Blood Pressure [Right Arm] Blood Pressure Mean 59 60 66 Blood Pressure Mean [Right Arm] 02 Sat by Pulse Oximetry Oxygen Delivery Method 03/04/22 14:25 03/04/22 14:36 03/04/22 14:40 Temperature Temperature Source Pulse Rate 82 85 82 Pulse Rate [Left] Respiratory Rate 18 18 17 Blood Pressure 112/52 L 104/68 L 101/54 L Blood Pressure [Right Arm] Blood Pressure Mean 66 80 69 Blood Pressure Mean [Right Arm] 02 Sat by Pulse Oximetry 97 98 96 Oxygen Delivery Method 03/04/22 15:12 03/04/22 15:16 03/04/22 15:21 Temperature Temperature Source Pulse Rate 97 H 84 85 Pulse Rate [Left] Respiratory Rate 19 17 Blood Pressure 110/62 106/65 L 97/53 L Blood Pressure [Right Arm] Blood Pressure Mean 74 77 67 Blood Pressure Mean [Right Arm] 02 Sat by Pulse Oximetry 98 98 97 Oxygen Delivery Method Room Air Room Air 03/04/22 15:30 Temperature Temperature Source Pulse Rate 87 Pulse Rate [Left] Respiratory Rate 20 Blood Pressure 87/56 L Blo
[2022-03-04 12:55] LABS: Basophils # 0.2 K/mm3 (0-0.2); Basophils % 1.7 % (0.1-2.0); Chloride 99 mmol/L (98-107); Eosinophils # 0.2 K/mm3 (0.0-0.4); Eosinophils % 1.8 % (0.1-12.0); Hematocrit 46.1 % (42.0-52.0); Hemoglobin 14.6 g/dL (14.1-18.0); Lymphocytes # 3.3 K/mm3 (0.7-4.5); Lymphocytes % 26.5 % (10-50); Mean Corpuscular HGB Conc 31.7 g/dL (31.8-35.4); Mean Corpuscular Hemoglobin 29.9 pg (27.0-31.2); Mean Corpuscular Volume 94.5 fl (80-94); Mean Platelet Volume 7.7 fl (7.4-10.4); Monocytes # 0.4 K/mm3 (0.1-1.0); Monocytes % 3.2 % (1.7-9.3); Neutrophils # 8.4 K/mm3 (1.8-7.8); Neutrophils % 66.8 % (37.0-80.0); Platelet Count 343 K/mm3 (142-424); Potassium 3.6 mmoL/L (3.5-5.1); Red Blood Count 4.88 M/mm3 (4.60-6.20); Red Cell Distribution Width 14.9 % (11.5-17.5); Sodium 134 mmol/L (136-145); White Blood Count 12.5 K/mm3 (4.8-10.8)
--- NOTE | 2022-03-04 12:57 | PC.NURSE ---
contacted cardiology office per ER MD request for consult. Notified DAVID Mahajan
[2022-03-04 12:58] LABS: Blood Urea Nitrogen 11 mg/dl (9-20); Creatinine Clearance Estimated 220 mL/min (50-200); Estimated Glomerular Filt Rate 107 ml/min (>60); GFR (African American) 130 ML/MIN (>60)
[2022-03-04 12:59] LABS: Anion Gap 8.6 mEq/L (5-15); Carbon Dioxide 30 mmol/L (22.0-30.0); Glucose 211 mg/dl (74-100)
--- NOTE | 2022-03-04 13:00 | PC.NURSE ---
pt to xr
--- NOTE | 2022-03-04 13:00 | PC.NURSE ---
notified rad of xray order, spoke with ana.
--- NOTE | 2022-03-04 13:07 | PC.NURSE ---
DAVID Grullon at bedside
--- NOTE | 2022-03-04 13:15 | PC.NURSE ---
verbal orders obtained by jeremy for 1 nitro SL tablet and an echo. spoke with jon in the echo lab and notified.
--- NOTE | 2022-03-04 13:19 | HMH.CNCARD ---
History of Present Illness Consult date: 03/04/22 Requesting physician: Jorge Luis Munoz Consult reason: chest pain Chief complaint: chest pain Additional Medical History:: 1. KARL, uses CPAP for the last 4 years 2. Obesity 3. Family history of coronary artery disease in his mother with stents in her early 60s 4. Smoker, 1 pack/day History of present illness: 1 week history of chest pain, shortness of breath, fatigue, palpitations. States that he has a constant discomfort across his anterior chest but it worsens with exertion. He has dyspnea with exertion, but not at rest. He has extreme fatigue. With exertion he feels his heart racing and fluttering. He does not have any known heart disease and has not had a previous cardiac work-up. He does not have diabetes, hypertension, hyperlipidemia. He is a smoker. Family history of cardiac stents in his mother, stroke in his father. The above per Dr. Munoz CP rated at 4/10 with left arm discomfort. Extremely tired over the weekend, sleeping most of the time. EKG is sinus with no acute ST segment changes compared to 2020 tracing. Troponins pending. Denies any recent fever, chills, vomiting but does admit to nausea. Also relates having some issues with erectile dysfunction. Smoker KARL, uses CPAP daily x 4 yrs Wt has increased over the last few years. [facility] History Medical History: Denies:: Diabetes Mellitus Type 1, Diabetes Mellitus Type 2 *Have you ever received a pneumonia vaccine?: No *Have you received a flu vaccine this season?: No Other Medical History: Reports: Other (diverticulitis) - *Social History Smoking Status: Unknown if ever smoked Tobacco Type: cigarettes # Packs/Day (cigarettes): 1 Alcohol Intake: never *Occupational Status:: other Housing: other Household Members: other *Travel in the last 8 weeks: Inside the [facility] Family Hx:: Coronary Artery Disease, Stroke Meds Home Medications Medication Instructions Recorded Confirmed Type Albuterol Sulfate [Proventil-HFA 1 - 2 puffs IH Q4HP PRN #1 inh 06/24/20 Rx 90mcg/puff Inh] Azithromycin [Z-Jan 250mg Tab] 250 mg PO DIRECTED #6 tab 06/24/20 Rx Fluticasone Propionate [Flonase 1 spr NS DAILY #1 bottle 06/24/20 Rx 50mcg nasal spray 16gm] guaiFENesin [Mucinex 600mg tablet] 600 mg PO BID #10 tab.er.12h 06/24/20 Rx metroNIDAZOLE [metroNIDAZOLE 500mg 500 mg PO TID #21 tab 12/16/21 Rx Tablet] Allergies Allergy/AdvReac Type Severity Reaction Status Date / Time codeine [CODEINE] Allergy Unknown Verified 04/29/20 13:02 naproxen [NAPROXEN] Allergy Unknown Verified 04/29/20 13:02 Exam Vital signs and Labs for Last 24 Hours: Temp Pulse Resp BP Pulse Ox 98.2 F 89 16 117/56 L 96 03/04/22 12:05 03/04/22 12:31 03/04/22 12:31 03/04/22 12:31 03/04/22 12:31 Laboratory Results - last 24 hr 03/04/22 12:06: WBC 12.5 H, RBC 4.88, Hgb 14.6, Hct 46.1, MCV 94.5 H, MCH 29.9, MCHC 31.7 L, RDW 14.9, Plt Count 343, MPV 7.7, Neut % (Auto) 66.8, Lymph % (Auto) 26.5, [place] % (Auto) 3.2, Eos % (Auto) 1.8, Baso % (Auto) 1.7, Neut # (Auto) 8.4 H, Lymph # (Auto) 3.3, [place] # (Auto) 0.4, Eos # (Auto) 0.2, Baso # (Auto) 0.2 I & O for Last 24 hours: Intake & Output 03/02/22 03/03/22 03/04/22 03/05/22 11:59 11:59 11:59 11:59 Weight 280 lb - Constitutional no acute distress - *Routine HEENT Exam Head: Present: normocephalic Eye: Present: EOMI, PERRL ENT: Present: mucous membranes moist - *Routine Neck Exam Present: supple. Absent: lymphadenopathy - *Routine Respiratory Exam Present: CTA bilaterally - *Routine Cardiovascular Exam Present: RRR - *Routine Abdominal Exam Present: soft, normoactive bowel sounds. Absent: tenderness - *Routine Extremities Exam Absent: cyanosis, clubbing, edema - *Routine Skin Exam Present: warm. Absent: rash - *Routine Neurological Exam Present: alert, oriented X3 Review of Systems - Review of Syste
--- NOTE | 2022-03-04 13:30 | PC.NURSE ---
pt bp dropped from SL nitro. 1 liter of NS was hung and and pt bp improved
[2022-03-04 13:31] LABS: Troponin I < 0.01 ng/ml (0.00-0.034)
--- NOTE | 2022-03-04 13:32 | PC.NURSE ---
echo at the bedside
--- NOTE | 2022-03-04 14:29 | PC.NURSE ---
speaking with DAVID Grullon
[2022-03-04 14:49] LABS: D-Dimer 0.43 ug/mL (0.0-0.5)
--- NOTE | 2022-03-04 15:05 | PC.NURSE ---
Pt ambulating to bathroom at this time
--- NOTE | 2022-03-04 15:35 | PC.NURSE ---
BAILEY Hudson notified by me of patients low BP and is at patients BS
--- NOTE | 2022-03-04 15:37 | PC.NURSE ---
marianna second troponin and sent to the lab
--- NOTE | 2022-03-04 15:38 | PC.NURSE ---
pt sitting on the side of the bed with no complaints
--- NOTE | 2022-03-04 15:51 | PC.NURSE ---
rounded on pt at this time, pt sitting up on side of bed. Pt requesting drink, Okayed per ER MD. Pt given jose mist and cup of ice. Pt updated that we are waiting on 2nd troponin result.
--- NOTE | 2022-03-04 16:35 | PC.NURSE ---
contacted lab to check on status of pt troponin result, spoke with rob. States it just finished and all she needs to do is release it
[2022-03-04 16:36] LABS: Troponin I < 0.01 ng/ml (0.00-0.034)
== END 2022-03-04 17:05 | disposition home or self-care (01) ==
PROVIDERS: Emergency Provider Emergency Medicine
DX: R07.89 Other chest pain (principal); G47.33 Obstructive sleep apnea (adult) (pediatric); E66.9 Obesity, unspecified; F17.210 Nicotine dependence, cigarettes, uncomplicated; R53.83 Other fatigue
CPT/HCPCS: 71045; 80048; 84484; 85025; 85378; 93005; 93306; 99284; 99285

== ENCOUNTER → 2022-04-02 12:40 | Outpatient (CLI) | payer SELFPAY | PROVIDERS: Visit Provider Nurse Practitioner Family | DX: Z02.4 Encounter for examination for driving license (principal) ==

== ENCOUNTER 2022-08-17 13:28 | Emergency (ER) | payer SELFPAY ==
--- NOTE | 2022-08-17 14:08 | PC.NURSE ---
BAILEY Wasserman was in triage room with patient when I went in, pt advised he had just been started on metformin last week and had, had no follow up since that date. Pt advised he had been going to the bathroom a lot with BM. Pt also advised he had not been checking his sugar like he should have been. V/S were obtained and were as followed: 122/84, HR 89, RR 16, O2 sats 100% on room air and FSBS was 350. Pt advised that his FSBS was much better than it was when he started the on the metformin. BAILEY Wasserman and myself spoke with patient about side effects of metformin and advised him we would be more than happy to see him and have him eval'ed by MD. Pt advised he had not been educated on the side effects of metformin and believed his symptoms were from starting the new medication. Pt advised he was not going to be seen but send his PCP a message and set up a virtual visit so he could have continuation of care with his new medication. PT LWBS with no further incident. Pt was edcuated that if anything changed or any of his symptoms worsened to come back to been seen. Pt was agreeable with POC.
[2022-08-17 14:14] VITALS: BP 122/84; PULSE 89; RESP 16; TEMP 36.8; O2SAT 100
== END 2022-08-17 14:17 | disposition left against medical advice (07) ==
PROVIDERS: Emergency Provider Emergency Medicine; PCP Family Medicine
DX: R42 Dizziness and giddiness (principal); R63.4 Abnormal weight loss; Z53.21 Procedure and treatment not carried out due to patient leaving prior to being seen by health care provider
CPT/HCPCS: 99211

== ENCOUNTER 2023-05-25 16:40 | Emergency (ER) | payer OTHER, SELFPAY ==
[2023-05-25 16:41] VITALS: BP 139/88; PULSE 99; RESP 18; TEMP 36.9; O2SAT 97; BMI 35.6
--- NOTE | 2023-05-25 17:59 | CT_ITS ---
PROCEDURE INFORMATION: Exam: CT Abdomen And Pelvis With Contrast Exam date and time: 05/25/2023 6:53 PM Age: 43 years old Clinical indication: Constipation; Additional info: Severe constipation 3 weeks. On ozempic, pain TECHNIQUE: Imaging protocol: Computed tomography of the abdomen and pelvis with contrast. Radiation optimization: All CT scans at this facility use at least one of these dose optimization techniques: automated exposure control; mA and/or kV adjustment per patient size (includes targeted exams where dose is matched to clinical indication); or iterative reconstruction. Contrast material: ISOVUE; Contrast volume: 75 ml; Contrast route: IV; REPORTING DATA: Count of CT and Cardiac NM exams in prior 12 months: This patient has received 0 known CTs and 0 known cardiac nuclear medicine studies in the 12 months prior to the current study. COMPARISON: CT ABDOMEN PELVIS WO CON 29/04/2020 13:41 FINDINGS: Lungs: Mild bibasilar atelectasis. Liver: Possible hepatic steatosis. Gallbladder and bile ducts: Normal. No calcified stones. No ductal dilation. Pancreas: Normal. No ductal dilation. Spleen: Normal. No splenomegaly. Adrenal glands: Normal. No mass. Kidneys and ureters: Normal. No hydronephrosis. Stomach and bowel: Mild sigmoid diverticulosis without diverticulitis. Moderate amount of stool in the colon. Appendix: Unremarkable appendix. Intraperitoneal space: Unremarkable. No free air. No significant fluid collection. Vasculature: The arteries demonstrate minimal atherosclerotic disease. Lymph nodes: Unremarkable. No enlarged lymph nodes. Urinary bladder: Unremarkable as visualized. Reproductive: Unremarkable as visualized. Bones/joints: The lumbar spine demonstrates mild degenerative changes at multiple levels. Soft tissues: Unremarkable. Other findings: Stigmata of old granulomatous disease. IMPRESSION: Moderate amount of stool in the colon. No acute findings.
--- NOTE | 2023-05-25 18:01 | HMH.EDGENADL ---
Discharge Plan Disposition Patient Disposition: Home, Self-Care Chief Complaint: Abdominal Pain Prescriptions Prescriptions: No Action metronidazole 500 MG tablet 500 mg PO TID Qty: 21 0RF azithromycin 250 MG tablet 250 mg PO DIRECTED Qty: 6 0RF Rx Instructions: Take two (2) tablets on day #1, then one (1) tablet day #2 thru #5 albuterol sulfate 200 PUFFS HFA aerosol inhaler 1 - 2 puffs IH Q4HP PRN (Reason: Shortness Of Breath) Qty: 1 0RF fluticasone propionate 120 SPR/BOT bottle 1 spr NS DAILY Qty: 1 0RF Rx Instructions: each nostril daily guaifenesin 600 MG tablet extended release 12hr 600 mg PO BID Qty: 10 0RF Referrals Follow up/Referrals: Phylicia Diaz APRN [Primary Care Provider] - See instructions Activity Restrictions/Add. Instructions Additional Instructions/Restrictions: At this time is slightly safe to be discharged home. If new or worsening symptoms please do not hesitate to return the emergency department. Please complete your bowel cleanout as discussed. Please follow-up with your family doctor as soon as you are able for possible medication adjustment. Clinical Impressions Clinical Impression: Constipation, Abdominal pain, Adverse effects of medication Instructions Patient Instructions: DI for Acute Abdominal Pain Discharge ED Provider: Jose Lindo General Adult HPI General Chief complaint: Abdominal Pain Stated complaint: weak,abd pain Time Seen by Provider: 05/25/23 17:40 Mode of Arrival: Ambulatory Source of Information: Patient Limitations: No Limitations Description of Symptoms (Recalled from ER Triage Doc. by RN): pt presents to ED stating that he is experiencing constipation. pt reports constipation x 1 month. pt reports trying prune juice, miralax, suppository with no relief. pt denies vomiting. pt reports starting Ozempic 3 months ago. pt reports he is still passing gas. History of Present Illness HPI narrative: Patient is a 43-year-old male with past medical history of previous diverticulitis, obesity on Ozempic who presents emergency department for evaluation of constipation. History is obtained by patient at bedside. He has had minimal stooling over the last 3 weeks. Patient recently increased his Ozempic from 0.5 mg to 1 mg approximately 4 weeks ago. Still passing flatus. Patient has tried multiple [id number] laxatives and enema without success. He has generalized discomfort and abdominal pain. Due to worsening constipation he presents here for continued evaluation. There is associated nausea, no vomiting. Related Data Previous Rx's Medication Instructions Recorded albuterol sulfate 90 mcg/actuation 1 - 2 puffs IH Q4HP PRN Shortness 06/24/20 aerosol inhaler Of Breath #1 inh azithromycin 250 mg tablet 250 mg PO DIRECTED #6 tabs 06/24/20 fluticasone propionate 50 1 spr NS DAILY ##1 06/24/20 mcg/actuation nasal spray,suspension guaifenesin 600 mg tablet, 600 mg PO BID ##10 06/24/20 extended release 12 hr metronidazole 500 mg tablet 500 mg PO TID #21 tabs 12/16/21 Allergies Allergy/AdvReac Type Severity Reaction Status Date / Time codeine [CODEINE] Allergy Unknown Verified 04/29/20 13:02 naproxen [NAPROXEN] Allergy Unknown Verified 04/29/20 13:02 [facility] Disclaimer: The information contained in this section may have been updated after the patient was seen, as this information can be updated by other users. Social History Smoking Status: Current every day smoker tobacco type: cigarettes packs per day: 1 alcohol intake: never current occupational status: other Travel in the last 8 weeks: Inside the [place] household members: other housing: other ROS Obtained: Yes Systems reviewed as appropriate & no additional complaints except as documented Physical Exam General General appearance: alert and in no apparent distress Head Head exam: atraumatic and normocephalic Eye Eye
[2023-05-25 18:34] LABS: Basophils # 0.1 K/mm3 (0-0.2); Basophils % 0.4 % (0.1-2.0); Eosinophils # 0.2 K/mm3 (0.0-0.4); Eosinophils % 1.8 % (0.1-12.0); Hematocrit 44.5 % (42.0-52.0); Hemoglobin 14.5 g/dL (14.1-18.0); Lymphocytes # 2.9 K/mm3 (0.7-4.5); Lymphocytes % 23.1 % (10-50); Mean Corpuscular HGB Conc 32.6 g/dL (31.8-35.4); Mean Corpuscular Hemoglobin 28.8 pg (27.0-31.2); Mean Corpuscular Volume 88.5 fl (80-94); Mean Platelet Volume 7.8 fl (7.4-10.4); Monocytes # 0.4 K/mm3 (0.1-1.0); Monocytes % 2.9 % (1.7-9.3); Neutrophils # 8.9 K/mm3 (1.8-7.8); Neutrophils % 71.9 % (37.0-80.0); Platelet Count 286 K/mm3 (142-424); Red Blood Count 5.02 M/mm3 (4.60-6.20); Red Cell Distribution Width 14.5 % (11.5-17.5); White Blood Count 12.4 K/mm3 (4.8-10.8)
[2023-05-25 18:35] LABS: Chloride 105 mmol/L (98-107); Potassium 3.9 mmoL/L (3.5-5.1); Sodium 138 mmol/L (136-145)
[2023-05-25 18:37] LABS: Alanine Aminotransferase 30 U/L (12-78); Aspartate Amino Transferase 31 U/L (17-59); Blood Urea Nitrogen 13 mg/dl (9-20); Creatinine Clearance Estimated 185 mL/min (50-200); Estimated Glomerular Filt Rate 93 ml/min (>60); GFR (African American) 112 ML/MIN (>60); Lipase 28 U/L (23-300)
[2023-05-25 18:38] LABS: Albumin Level 3.9 g/dl (3.5-5.0); Albumin/Globulin Ratio 1.6 (1.1-1.8); Alkaline Phosphatase 93 U/L (38-126); Anion Gap 7.9 mEq/L (5-15); Bilirubin,Total 0.3 mg/dl (0.2-1.3); Calcium 8.5 mg/dl (8.4-10.2); Carbon Dioxide 29 mmol/L (22.0-30.0); Globulin 2.5 g/dL (1.3-3.2); Glucose 117 mg/dl (74-100); Total Protein,Serum 6.4 g/dl (6.3-8.2)
--- NOTE | 2023-05-25 18:38 | PC.NURSE ---
Rounded on patient; helped patient ambulated to bathroom
[2023-05-25 19:11] LABS: Microscopic, Urine URINE MICROSCOPIC (MICROSCOPIC)
[2023-05-25 19:16] LABS: Appearance,Urine CLEAR (Clear); Bilirubin,Urine Negative (Negative); Blood, Urine TRACE-I (Negative); Color,Urine YELLOW (Yellow); Glucose,Urine (UA) Negative (Negative); Ketones,Urine Negative (Negative); Leukocyte Esterase,Urine Negative (Negative); Nitrate,Urine Negative (Negative); PH,Urine 5.5 (5.0-8.5); Protein,Urine Negative (Negative); Specific Gravity, Urine >= 1.030 (1.005-1.030)
[2023-05-25 19:30] VITALS: BP 115/61; PULSE 85; RESP 18; O2SAT 97
[2023-05-25 19:31] LABS: Bacteria,Urine Trace /lpf; RBC,Urine Occasional #/hpf (0-3); Squamous Epithelial Cell,Urine Occasional #/hpf (0-5)
[2023-05-25 20:00] VITALS: BP 121/58; PULSE 78; RESP 18; O2SAT 97
--- NOTE | 2023-05-25 20:37 | PC.NURSE ---
Rounded on pt, requested to speak with the doctor about his visit.
[2023-05-25 20:50] VITALS: BP 121/58; PULSE 79; RESP 16; TEMP 36.7; O2SAT 95
== END 2023-05-25 20:52 | disposition home or self-care (01) ==
PROVIDERS: Emergency Provider Emergency Medicine; PCP Nurse Practitioner Family
DX: K59.00 Constipation, unspecified (principal); T38.3X5A Adverse effect of insulin and oral hypoglycemic [antidiabetic] drugs, initial encounter; F17.210 Nicotine dependence, cigarettes, uncomplicated
CPT/HCPCS: 74177; 80053; 81001; 83690; 85025; 96361; 96374; 96375; 99285; J0131; J2405; Q9967

== ENCOUNTER 2023-08-28 12:10 | Emergency (ER) | payer OTHER, SELFPAY ==
[2023-08-28 12:12] VITALS: BP 120/64; PULSE 113; RESP 18; TEMP 36.8; O2SAT 100; BMI 35.9
--- NOTE | 2023-08-28 12:54 | XR_ITS ---
PROCEDURE INFORMATION: Exam: XR Left Foot Exam date and time: 08/28/2023 1:06 PM Age: 43 years old Clinical indication: Pain; Foot; Left; Additional info: Foot pain TECHNIQUE: Imaging protocol: Radiologic exam of the left foot. Views: 3 or more views. COMPARISON: No relevant prior studies available. FINDINGS: Bones/joints: Irregular cortical thickening in the proximal 2nd-5th metatarsals compatible with chronic stress fractures. Possible pes cavus deformity, suboptimally evaluated on nonweightbearing imaging. No evidence of acute fracture or malalignment. Lisfranc joint appears normal. Calcaneal enthesopathy. Soft tissues: Unremarkable. IMPRESSION: 1. No evidence of acute osseous abnormality in the left foot. 2. Irregular cortical thickening in the proximal 2nd-5th metatarsals compatible with chronic stress fractures. 3. Possible pes cavus deformity, suboptimally evaluated on nonweightbearing imaging. 4. Calcaneal enthesopathy.
--- NOTE | 2023-08-28 12:54 | XR_ITS ---
PROCEDURE INFORMATION: Exam: XR Right Foot Exam date and time: 08/28/2023 1:05 PM Age: 43 years old Clinical indication: Pain; Foot; Right; Additional info: Diffuse pain TECHNIQUE: Imaging protocol: Radiologic exam of the right foot. Views: 3 or more views. COMPARISON: CR [id number] XR knee RT 3V 11/28/2018 1:30 AM FINDINGS: Bones/joints: Slight cortical thickening in the proximal 2nd-5th metatarsals compatible with chronic stress fractures, less pronounced when compared to the contralateral foot. No evidence of acute fracture or malalignment. Lisfranc joint appears normal. Calcaneal enthesopathy. Soft tissues: Unremarkable. IMPRESSION: 1. No evidence of acute osseous abnormality in the right foot. 2. Slight cortical thickening in the proximal 2nd-5th metatarsals compatible with chronic stress fractures, less pronounced when compared to the contralateral foot. 3. Calcaneal enthesopathy.
--- NOTE | 2023-08-28 13:02 | PC.NURSE ---
Dr. Lindo at BS for pt eval
--- NOTE | 2023-08-28 13:08 | PC.NURSE ---
Dr. Lindo at BS to do a POCUS
--- NOTE | 2023-08-28 13:13 | HMH.EDGENADL ---
Discharge Plan Disposition Patient Disposition: Home, Self-Care Prescriptions Prescriptions: New gabapentin 300 mg capsule See Rx Instructions .ROUTE .COMPLEX 1 Days Qty: 23 0RF Rx Instructions: 300 mg orally twice a day beginning on 08-29-2023, 300 mg 3 times a day thereafter. sulfamethoxazole-trimethoprim [Bactrim DS] 800-160 mg tablet 1 tab PO BID 7 Days Qty: 14 0RF No Action metformin 1,000 mg tablet,ER maureen.retention 24 hr PO Ozempic 1 mg/dose (4 mg/3 mL) pen injector SQ Patient Comments: INJECT 1MG UNDER THE SKIN ONCE WEEKLY ON THE SAME DAY EACH WEEK Referrals Follow up/Referrals: Phylicia Diaz APRN [Primary Care Provider] - See instructions Nneka Aragon DPM [Staff Physician] - See instructions Activity Restrictions/Add. Instructions Additional Instructions/Restrictions: At this time it was felt you are safe to be discharged home. If new or worsening symptoms please do not hesitate to return the emergency department. Please take your antibiotics as prescribed and your gabapentin for pain of your diabetic neuropathy. Please follow-up with your family doctor for repeat evaluation of your diabetic neuropathy and long-term control. Please call and schedule an appointment with podiatry Dr. Aragon as soon as you are able. Clinical Impressions Clinical Impression: Acute foot pain, Diabetic neuropathy, Foot lesion Instructions Patient Instructions: DI for Skin Abscess Discharge ED Provider: Jose Lindo General Adult HPI General Chief complaint: Skin/Abscess/Foreign Body Stated complaint: type II diabetes,bilateral foot pain Time Seen by Provider: 08/28/23 12:54 Mode of Arrival: Ambulatory Source of Information: Patient Limitations: No Limitations Description of Symptoms (Recalled from ER Triage Doc. by RN): pt presents to ED c/o bilateral foot pain. pt reports hx of DM. pt denies any hx of known neuropathy. pt states he does have a knot to bottom right foot that he has had for 2 months. History of Present Illness HPI narrative: Patient is a 43-year-old male with past medical history of ryp-dlsvvcw-[id number] diabetes on metformin and semaglutide who presents emergency department for evaluation of bilateral foot pain. Patient has had chronic foot pain for the last 2 to 3 months, diffuse, burning. He has also noticed a swelling over the plantar distal aspect of his right foot which is causing him significant pain with ambulation. No fevers, no other acute complaints at this time Related Data Home Medications Medication Instructions Recorded Confirmed metformin 1,000 mg 24 hr mg PO 08/12/23 08/12/23 tablet,extended release (gastric reten.) semaglutide 1 mg/dose (4 mg/3 mL) mg SQ 08/12/23 08/12/23 subcutaneous pen injector (Ozempic) Previous Rx's Medication Instructions Recorded gabapentin 300 mg capsule See Rx Instructions .Route 08/28/23 .COMPLEX Diabetic Neuropathy 1 day #23 caps sulfamethoxazole 800 1 tab PO BID 7 days #14 tabs 08/28/23 mg-trimethoprim 160 mg tablet (Bactrim DS) Allergies Allergy/AdvReac Type Severity Reaction Status Date / Time codeine [CODEINE] Allergy Unknown Verified 08/12/23 11:20 naproxen [NAPROXEN] Allergy Unknown Verified 08/12/23 11:20 [facility] Disclaimer: The information contained in this section may have been updated after the patient was seen, as this information can be updated by other users. Social History Smoking Status: Never smoker alcohol intake: never current occupational status: other Travel in the last 8 weeks: Inside the [place] States household members: other housing: other ROS Obtained: Yes Systems reviewed as appropriate & no additional complaints except as documented Physical Exam General General appearance: alert and in no apparent distress Head Head exam: atraumatic and normocephalic Eye Eye exam: Present PERRL and EOMI ENT ENT exam: Present mucous membranes moist Neck Neck exam: Present normal inspection Chest Chest inspection: Present normal inspection and symmetric chest wall rise Respiratory Respiratory exam: Present normal lung sounds bilaterally; Absent respiratory distress Cardiovascular Cardiovascular exam: Present regular rate and normal rhythm Abdominal Exam Abdominal exam: Present soft Extremities Exam Extremities exam: Present other (2+ bilateral dorsal pedal pulses. No significant erythema or warmth over the feet or ankle joints. Palpable subcutaneous area of induration over the dorsal medial right plantar foot.) Neurological Exam Neurological exam: Present alert Psychiatric Psychiatric exam: Present normal affect Skin Skin exam: Present warm and dry Medical Decision Making Eduardo Inquiry Pt receiving controlled substance: No Vital Signs: 08/28/23 12:12 08/28/23 13:40 08/28/23 14:41 Temperature 98.2 F 98.1 F Temperature Source Oral Pulse Rate 80 78 Pulse Rate [Right Radial] 113 H Respiratory Rate 18 18 20 Blood Pressure 109/64 L 139/78 Blood Pressure [Left Arm] 120/64 Blood Pressure Mean [Left Arm] 82 Blood Pressure Source Automatic Cuff Blood Pressure Source [Left Arm] Automatic Cuff Blood Pressure Position Sitting Blood Pressure Position [Left Arm] Sitting 02 Sat by Pulse Oximetry 100 96 Oxygen Delivery Method Room Air Room Air Room Air Orders (Tests/Meds): ED MEDICATIONS Discontinued Medications Generic Name Dose Route Start Last Admin Trade Name Lyndon PRN Reason Stop Dose Admin Gabapentin 300 mg 08/28/23 13:37 08/28/23 13:44 Gabapentin 300mg Capsule PO 08/28/23 13:38 300 mg ONCE ONE Administration ORDERS Category Date Time Status Foot XR left minimum 3 views [XR foot LT min 3V] Stat Exams 08/28/23 12:54 Completed POCUS Point of Care (ER Only) Stat Exams 08/28/23 13:07 Ordered XR foot RT min 3V Stat Exams 08/28/23 12:54 Completed Medical Decision Narrative: In summary patient is a 43-year-old male with past medical history described above who presents emergency department for evaluation of bilateral foot pain in the setting of diabetes. Patient is hemodynamically stable and nontoxic-appearing upon arrival, afebrile. With respect to the chronic burning aspect of his feet in the history of diabetes I suspect the patient has diabetic neuropathy which will be treated empirically with gabapentin on an outpatient basis. Plain films of the bilateral feet will be obtained for baseline. Patient also has area of induration without overlying erythema or warmth that is tender to touch on his dorsal medial plantar right foot. Ojlbg-[id number]-[id number] ultrasound at bedside shows complex fluid collection versus tissue lesion for which shared decision making an incision and drainage empirically was offered at bedside however patient wishes to decline and follow-up with podiatry for this. Given this and that I do not think patient is systemically ill further workup is not indicated at this time although was considered. X-ray shows evidence of chronic stress fractures with cortical thickening, no acute abnormality. Given this patient is appropriate for discharge at this time will be discharged with a course of gabapentin and a short course of antibiotics as a bridge until podiatry follow-up. Procedures Miscellaneous Procedure Procedure Performed: Indication: Soft tissue swelling and pain Identified structures: Location: [Plantar medial distal right foot] Findings: Complex echogenicity circumscribed area for which differential includes complicated fluid collection versus soft tissue lesion Impression: As above Images were to permanent archive The study was technically adequate Soft Tissue CPT Codes: CPT Neck: 13476-86 CPT Upper extremity: 72657-43 CPT Axilla: 73725-67 CPT Chest wall: 86206-46 CPT Breast: 82983-06-VK/LT (complete), 40177-26-ZB/LT (limited), CPT Upper Back: 73925-81 CPT Lower Back: 86208-42 CPT Abdominal Wall: 10695-31 CPT Pelvic Wall: 17786-85 CPT Lower Extremity: 04188-42 CPT Other Soft Tissue: 43783-94 This study was performed by me, and I personally interpreted all images/videos. Based on my clinical judgement, these images were [adequate/inadequate] and [did/did not] necessitate further imaging. Critical Care Critical Care Time Critical Care Time: No
[2023-08-28 13:40] VITALS: BP 109/64; PULSE 80; RESP 18; O2SAT 96
[2023-08-28] MEDS: GABAPENTIN 300MG CAPSULE 300 MG PO (13:44)
[2023-08-28 14:41] VITALS: BP 139/78; PULSE 78; RESP 20; TEMP 36.7; O2SAT 97
== END 2023-08-28 14:43 | disposition home or self-care (01) ==
PROVIDERS: Emergency Provider Emergency Medicine; PCP Nurse Practitioner Family
DX: M79.671 Pain in right foot (principal); M79.672 Pain in left foot; E11.40 Type 2 diabetes mellitus with diabetic neuropathy, unspecified
CPT/HCPCS: 73630; 99284

== ENCOUNTER 2023-09-01 16:33 | Outpatient (CLI) | payer OTHER, SELFPAY ==
[2023-09-01 17:10] LABS: Basophils # 0.1 K/mm3 (0-0.2); Basophils % 0.7 % (0.1-2.0); Eosinophils # 0.3 K/mm3 (0.0-0.4); Eosinophils % 2.7 % (0.1-12.0); Hemoglobin 15.5 g/dL (14.1-18.0); Lymphocytes # 2.3 K/mm3 (0.7-4.5); Lymphocytes % 23.2 % (10-50); Mean Corpuscular HGB Conc 33.7 g/dL (31.8-35.4); Mean Corpuscular Hemoglobin 29.2 pg (27.0-31.2); Mean Corpuscular Volume 86.7 fl (80-94); Mean Platelet Volume 7.6 fl (7.4-10.4); Monocytes # 0.4 K/mm3 (0.1-1.0); Neutrophils # 6.9 K/mm3 (1.8-7.8); Neutrophils % 69.4 % (37.0-80.0); Platelet Count 291 K/mm3 (142-424); Red Cell Distribution Width 14.3 % (11.5-17.5); White Blood Count 9.9 K/mm3 (4.8-10.8)
[2023-09-01 17:36] LABS: Hemoglobin A1C 6.3 % (4.0-6.0)
[2023-09-01 17:48] LABS: Erythrocyte Sedimentation Rate 16 mm/hr (0-15)
[2023-09-01 18:08] LABS: Albumin Level 3.9 g/dl (3.5-5.0); Albumin/Globulin Ratio 1.6 (1.1-1.8); Calcium 8.2 mg/dl (8.4-10.2); Chloride 101 mmol/L (98-107); Globulin 2.4 g/dL (1.3-3.2); Glucose 112 mg/dl (74-100); Potassium 4.1 mmoL/L (3.5-5.1); Sodium 137 mmol/L (136-145); Total Protein,Serum 6.3 g/dl (6.3-8.2)
[2023-09-01 18:14] LABS: Alanine Aminotransferase 42 U/L (12-78); Alkaline Phosphatase 84 U/L (38-126); Aspartate Amino Transferase 40 U/L (17-59); Bilirubin,Total 0.4 mg/dl (0.2-1.3); Blood Urea Nitrogen 11 mg/dl (9-20); Carbon Dioxide 31 mmol/L (22.0-30.0); Estimated Glomerular Filt Rate 93 ml/min (>60); GFR (African American) 112 ML/MIN (>60)
[2023-09-01 18:15] LABS: Anion Gap 9.1 mEq/L (5-15)
== END 2023-09-01 23:59 ==
LOC: LAB 16:34
PROVIDERS: PCP Nurse Practitioner Family; Visit Provider Podiatrist
DX: L98.9 Disorder of the skin and subcutaneous tissue, unspecified (principal); M79.671 Pain in right foot; D49.2 Neoplasm of unspecified behavior of bone, soft tissue, and skin; M79.89 Other specified soft tissue disorders
CPT/HCPCS: 36415; 80053; 83036; 85025; 85651; 86140

== ENCOUNTER 2023-09-03 13:06 | Outpatient (CLI) | payer OTHER, SELFPAY ==
--- NOTE | 2023-09-03 13:07 | MR_ITS ---
FINAL REPORT CLINICAL HISTORY: Mass of right foot, plantar side of foot in arch. 28ml prohance COMPARISON: None FINDINGS: Multiplanar MR imaging of the right foot was performed with and without contrast. There is no evidence of fracture or marrow edema. The flexor and extensor tendons are intact. No fluid collections are identified. The intrinsic muscles are unremarkable. Mass in the medial forefoot is superficial to the flexor hallucis longus tendon and measures 18 x 11 mm. It appears to involve the medial aspect of the plantar aponeurosis and may represent plantar fibroma versus other neoplasm. There are no areas of abnormal contrast-enhancement. IMPRESSION: Mass medial forefoot may represent plantar fibroma versus other neoplasm. Reviewed, Interpreted and Dictated by Jim Lazaro III, MD Transcribed by Carolann Thapa Authenticated and [facility]
[2023-09-03] MEDS: SODIUM CHLORIDE 0.9% 10ML SYR (RAD ONLY) 10 ML IV (14:14)
[2023-09-03] MEDS: GADOTERIDOL INJ 17ML SYRINGE 28 ML IV (14:14)
== END 2023-09-03 23:59 ==
LOC: RAD 13:07
PROVIDERS: PCP Nurse Practitioner Family; Visit Provider Podiatrist
DX: D49.2 Neoplasm of unspecified behavior of bone, soft tissue, and skin (principal); M79.89 Other specified soft tissue disorders
CPT/HCPCS: 73720; A9576

== ENCOUNTER 2023-09-10 10:15 | Outpatient (CLI) | payer OTHER, SELFPAY ==
--- NOTE | 2023-09-10 10:25 | ECG_ITS ---
APPROVED REPORT Exam: Resting ECG HR:89 bpm ECG Measurements Heart Rate 89 AXES WV 177 P 70 QRSd 89 QRS 75 QT 329 T 50 QTc 376 Conclusion SINUS RHYTHM NONSPECIFIC T-WAVE ABNORMALITY BORDERLINE ECG UNCONFIRMED REPORT Electronically signed by : Kike Spence MD 09/10/2023 12:05:49
--- NOTE | 2023-09-10 10:27 | XR_ITS ---
FINAL REPORT CLINICAL HISTORY: Preoperative testing, SOB FINDINGS: Two views of the chest were obtained. The heart size and pulmonary vascularity are within normal limits. The mediastinum is normal. There is bronchial wall thickening consistent with bronchitis. There is no pneumothorax. The bony thorax is intact. IMPRESSION: Bronchial wall thickening consistent with bronchitis.` Reviewed, Interpreted and Dictated by Jim Lazaro III, MD Transcribed by Cathy Drew Authenticated and [facility]
== END 2023-09-10 23:59 ==
LOC: RAD 10:16
PROVIDERS: PCP Nurse Practitioner Family; Visit Provider Podiatrist
DX: Z01.818 Encounter for other preprocedural examination (principal); R22.41 Localized swelling, mass and lump, right lower limb
CPT/HCPCS: 71046; 93005

== ENCOUNTER 2023-09-15 06:01 | Day surgery (SDC) | payer OTHER, SELFPAY ==
[2023-09-13 11:47] VITALS: BMI 43.6
[2023-09-15] VITALS (12 sets, daily range): BP systolic 125–173; BP diastolic 57–91; PULSE 100–107; RESP 16–18; TEMP 36.1–36.7; O2SAT 90–98
[2023-09-15] MEDS: LACTATED RINGERS 1000ML 1,000 ML 25 ML IV (06:17)
[2023-09-15 06:34] LABS: POC Glucose,Bedside 103 (70-110)
--- NOTE | 2023-09-15 07:09 | P.PNANES_ITS ---
[facility] Disclaimer: The information contained in this section may have been updated after the patient was seen, as this information can be updated by other users. Medical History No significant past medical history Surgical History No history of previous surgery Family History Other Family history of COPD (chronic obstructive pulmonary disease) Family history of asthma Family history of diabetes mellitus type II Family history of myocardial infarction Family history of stroke Social History Smoking Status: Current every day smoker tobacco type: cigarettes packs per day: 1 alcohol intake: never substance use type: denies use current occupational status: other Travel in the last 8 weeks: Inside the [place] household members: other housing: other [facility] Anesthesia Checklist Patient Identification Patient Identification: Arm Band and Verbal (Name & ) Structural Data Admitted From: Home Planned Operative Procedure/s: I & D, foot mass Consent for Planned Operative Procedure(s) Verified: Yes NPO Status Verified Time NPO: 00:00 Chart Verification Results Verified: CBC and BMP Additional verifications Anesthesia Reactions: No Hx Blood Transfusions: No Blood Transfusion Reaction: No Airway Assessment Mallampati Score:: Class IV C-Spine Mobility Assessed: Yes TMJ Mobility Assessed: Yes Dentition: Dentures-poor fitting Neurological Assessment Level of Consciousness: Awake Hx Seizures: No Numbness or tingling in extremities: No Anesthesia Plan Anesthesia Risk discussed: Yes Anesthesia Plan: Verified ASA Class: III Anesthesia Type: General w/block
[2023-09-15] MEDS: BUPIVACAINE 0.5% 10ML VIAL 100 MG (07:32)
[2023-09-15] MEDS: VANCOMYCIN HCL 2,500 MG in 0.9 % SODIUM CHLORIDE 250 ML 125 MG IV (07:45)
[2023-09-15] MEDS: GENTAMICIN 80 MG/2 ML VIAL 160 MG (08:06)
[2023-09-15] MEDS: SODIUM CHLORIDE IRRIG SOLUTION 6,000 ML 100 ML IR (08:18)
--- NOTE | 2023-09-15 08:41 | EXP.OP.NOTE ---
Date of procedure: 09/15/23 Pre-op Diagnosis:: Left hallux ingrown toenail Right foot soft tissue mass Post-op Diagnosis:: Same Procedure performed:: Right foot excision tumor (subfascial/intramuscular-00609) Right I&D soft tissue abscess below the deep fascia () Left hallux b/l borders partial nail avulsion with phenol (35391) Surgeon:: Nneka Aragon DPM [employer]):: Luz Thompson APRN (PNA procedure) CARTOGRAPHY/MAPPING TECHNICIAN:: Luana Carrillo Anesthesia: GETA and local (0.5% marcaine plain) Estimated blood loss (mL): 20 Clinical Note:: See office H&P. Operative findings:: Left hallux ingrown bilateral border as localized edema and erythema. No purulent drainage or ascending cellulitis. Bilateral borders removed without complication. Right foot soft tissue mass noted to the medial plantar foot. The mass was over the flexor hallucis longus tendon and arising from part of the plantar muscle (subfascial/intramuscular). Mass was fibrous and firm. There was blood and nerve supplying the tumor. Small blood vessels and nerves had to be transected in order to remove the mass. Upon removal mass measured approximately 2.8 x 2.2 cm round. Incision and drainage was performed of the actual soft tissue mass below the level of the deep fascia. No purulence, malodor drainage or cystic ganglionic type fluid was expressed. Mass sent to pathology specimen. Operative note:: On this date and time, the patient was deemed an appropriate surgical candidate. With informed consent signed, the patient was taken to the operating theater and positioned supine. General anesthesia was induced. Tourniquet was applied to the RIGHT mid calf. IV vancomycin infused. LEFT Hallux b/l border, partial nail avulsion (PNA) with phenol: Betadine used to prep the left hallux. A local anesthetic block was given into the hallux/forefoot with 10 mL's of half percent Marcaine plain under asceptic technique. Once the appropriate level of anesthesia was achieved a digital tourniquet was placed around the big toe. At this time an elevator, hemostat, and Kazakh anvil were used to remove the medial and lateral border of the big toenail. A curette was used to explore the border an ensure that all of the nail was removed. No purulence noted. Once the offending nail border was removed approximately 3 applications of phenol for 30 seconds each were applied to the nail border. This was then flushed with saline. The tourniquet was released and rapid capillary refill time was noted to the hallux nail. At this time antibiotic ointment, 4x4's gauze, and coban was applied. Patient tolerated the procedure and local anesthesia well without complication. RIGHT soft tissue mass/tumor excision with I&D of the soft tissue abscess: The right lower extremity was prepped and draped in normal sterile fashion. The tourniquet was inflated at 225 mmHg. Attention was directed to the plantar medial foot where the mass was mapped out. Lazy S incision made and dissection was carried through skin to subcutaneous tissue with care taken to maintain surgical hemostasis and safely retract neurovascular structures. 15 blade was used to make an I&D over a portion of the suspected abscess. No purulence malodor or drainage noted. Careful dissection was used to resect and excised the entire mass which was firm. See operative findings for details. Gentamicin irrigation used to flush the area. Area was reexplored and no other signs of tumor or infection was noted. No sinus tracts or drainage. The remaining amount of gentamicin irrigation and pulse lavage was used to flush the area. The hallux was taken through range of motion and the FHL was visible and still intact. There was some loss of plantar muscle from resecting the tumor. 2-0 Vicryl was used to close deep tissue and subcutaneous tissue. 2-0 nylon used to close the skin in a simple and interrupted mattress fashion. The wound was cleansed. 5 cc 0.5% marcaine plain was injected at the end of the case around the incision. Betadine soaked gauze, dry sterile dressing was then applied to the right foot. The patient was awoken from anesthesia and transferred to recovery with vital signs stable and neurovascular status intact. He appeared to tolerate procedure anesthesia well without complication. Discharge/Plan: LEFT: Patient was instructed to soak the affected toe in warm water and Epsom salts twice daily for 15 minutes for the next 2-3 weeks. An e-prescription was sent for mupirocin ointment. Apply triple antibiotic ointment to the affected area with bandaid. Discussed signs of infection. The patient verbalized understanding and written post-op instructions on wound care and soaking were given. They can take otc pain medication as needed. They can wbat. Patient to RTC in 2-3 weeks for follow up. Patient should call office sooner if any questions or concerns arise. RIGHT: Patient is to maintain dressing clean dry and intact. Elevate on two pillows. Partial weight bearing to the right heel with fracture boot and crutches. Follow up in one week as previously scheduled for incision check. Tourniquet time (min): 22 Condition: stable Disposition: same day Specimens:: Right foot soft tissue mass tumor Complications:: None
--- NOTE | 2023-09-15 08:48 | EXP.ANES.I ---
[facility] Anesthesia Record Part I Anesthesia Record I Intake, IV Amount: 700 Hydration: Adequate Estimated blood loss (mL): 15 Urine output (mL): 0 Blood Pressure: 125/57 SaO2: 90 Pulse Rate: 107 Airway Patency: Patent Respiratory Rate: 17 Temperature: 97 F Patient is:: Drowsy and Oral/Nasal airway Stable to PACU at:: 08:44
--- NOTE | 2023-09-15 08:54 | PC.NURSE ---
Veda Arcos CRNA at bedside performing a nerve block.
--- NOTE | 2023-09-15 09:14 | PC.NURSE ---
Pt without c/o at this time, sipping water with no difficulty. encouraging pt to cough and deep breath to support O2 levels. Pt attempted to urinate in urinal and was unable to at this time.
--- NOTE | 2023-09-15 09:22 | SUR.PHASEI ---
FSBS 140
[2023-09-15] MEDS: MEPERIDINE 25MG/ML 1ML SYRINGE 12.5 MG IV (09:28)
--- NOTE | 2023-09-15 10:03 | SUR.PHASEI ---
0854 to 0902 Popliteal and adductor canal nerve block performed at bedside by philippe Arcos CRNA. Pt was still asleep from anesthesia and tolerated well.
[2023-09-15 10:28] LABS: POC Glucose,Bedside 140 (70-110)
--- NOTE | 2023-09-16 07:33 | P.PNANES_ITS ---
[facility] Anesthesia Record Part II Anesthesia Record Part II Discharge Time: 09:34 Destination: Surgical Day Care (OP Surgery) PACU nurse assessment reviewed?: Yes Patient Condition:: Good Anesthesia Complications:: None Swallowing reflex intact?: Yes Airway Patency: Patent Cyanosis?: No Blood Pressure: 152/88 SaO2: 95 Respiratory Rate: 18 Pulse Rate: 106 Temperature: 98.1 F Mental Status: Alert & Oriented Pain level:: 0 Nausea and/or vomitting:: None Intake, IV Amount: 0 Hydration: Adequate
[2023-09-16 07:34] VITALS: BP 152/88; PULSE 106; RESP 18; TEMP 36.7; O2SAT 95
== END 2023-09-15 10:40 | disposition home or self-care (01) ==
PROVIDERS: PCP Nurse Practitioner Family; Visit Provider Podiatrist
PROC: (CPT 28041; principal; 2023-09-15 07:30)
DX: M79.89 Other specified soft tissue disorders (principal); D49.2 Neoplasm of unspecified behavior of bone, soft tissue, and skin; E11.42 Type 2 diabetes mellitus with diabetic polyneuropathy; F17.210 Nicotine dependence, cigarettes, uncomplicated; L60.0 Ingrowing nail; M79.671 Pain in right foot; E66.01 Morbid (severe) obesity due to excess calories; Z68.41 Body mass index [BMI] 40.0-44.9, adult; Z79.84 Long term (current) use of oral hypoglycemic drugs; Z79.899 Other long term (current) drug therapy
CPT/HCPCS: 28041; 11730; 82962; 96374; J2405; J3370

== ENCOUNTER 2024-01-19 15:43 | Emergency (ER) | payer OTHER, SELFPAY ==
[2024-01-19 16:00] VITALS: BP 137/77; PULSE 97; RESP 18; TEMP 36.8; O2SAT 100; BMI 36.6
[2024-01-19] MEDS: TET/DIPHTH/PERT-ADULT 0.5ML SYRINGE 0.5 ML IM (16:13)
[2024-01-19 16:29] VITALS: BP 137/77; PULSE 97; RESP 18; TEMP 36.8; O2SAT 100; BMI 36.6
[2024-01-19 16:31] VITALS: BP 137/77; PULSE 97; RESP 18; TEMP 36.8; O2SAT 100
== END 2024-01-19 16:31 | disposition home or self-care (01) ==
PROVIDERS: Emergency Provider Nurse Practitioner Family; PCP Nurse Practitioner Family
DX: Z23 Encounter for immunization (principal)
CPT/HCPCS: 90471; 90715; 99212; G0463

== ENCOUNTER 2024-02-25 22:37 | Emergency (ER) | payer OTHER, SELFPAY ==
[2024-02-25 22:47] VITALS: RESP 16; O2SAT 98; BMI 37.3
--- NOTE | 2024-02-25 22:50 | PC.NURSE ---
Rounded on patient and took items needed to look into patients eye, found patient standing up at bedside with seated in the chair.
--- NOTE | 2024-02-25 23:03 | ED_ITS ---
Discharge Plan Disposition Patient Disposition: Home, Self-Care Prescriptions Prescriptions: No Action metformin 1,000 mg tablet,ER maureen.retention 24 hr 1 mg PO WEEKLY Ozempic 1 mg/dose (4 mg/3 mL) pen injector 1 mg SQ WEEKLY Patient Comments: INJECT 1MG UNDER THE SKIN ONCE WEEKLY ON THE SAME DAY EACH WEEK ibuprofen 800 mg tablet 800 mg PO BID Qty: 60 3RF ondansetron 4 mg tablet,disintegrating 4 mg PO Q6H Qty: 30 2RF gabapentin 100 mg capsule 100 mg PO TID PRN (Reason: nerve pain) 10 Days Qty: 30 0RF sulfamethoxazole-trimethoprim [Bactrim DS] 800-160 mg tablet 1 tab PO BID 5 Days Qty: 10 0RF mupirocin 2 % ointment 1 applic topical BID Qty: 22 0RF urea 40 % cream 1 applic topical BID 30 Days Qty: 60 3RF Rx Instructions: Apply to thickened dry skin and calluses oxycodone 5 mg tablet 5 mg PO Q8H PRN (Reason: pain) 3 Days Qty: 9 0RF peg 3350-electrolytes [GaviLyte-G] 236-22.74-6.74 -5.86 gram recon soln 240 ml PO Q10M Qty: 4000 0RF Rx Instructions: follow mailed instructions Referrals Follow up/Referrals: Phylicia Diaz APRN [Primary Care Provider] - See instructions Activity Restrictions/Add. Instructions Additional Instructions/Restrictions: Please follow-up with an eye doctor as needed. Please return to the emergency department if you develop any new or worsening symptoms or become concerned for your health. Please apply erythromycin ointment into each eye 4 times a day for the next 7 days. Clinical Impressions Clinical Impression: Conjunctivitis Qualifiers: Conjunctivitis type: acute Acute conjunctivitis type: unspecified Laterality: bilateral Qualified Code(s): H10.33 - Unspecified acute conjunctivitis, bilateral Discharge ED Provider: Joshua Rudolph Adult HPI General Chief complaint: Eye Problems Stated complaint: left eye redness/swelling Time Seen by Provider: 02/25/24 22:59 Mode of Arrival: Family Vehicle Source of Information: Patient Limitations: No Limitations Description of Symptoms (Recalled from ER Triage Doc. by RN): 43 YO MALE PRESENTS WITH CC of left eye redness and irritation. patient denies any chemical/fumes/flash exposure. spouse noticed right eye is also now doing it, however there is no pain in that one. History of Present Illness HPI narrative: 43-year-old male with presents with left eye irritation, now moving to the right eye. He reports he started noting left eye becoming irritated a couple of days ago. Reports some goop in the corners of his eyes. Denies any new exposure or foreign body. Reports normal vision. Reports the eye itself is not painful, but the outside feels irritated. He does not wear contacts. Related Data Home Medications Medication Instructions Recorded Confirmed metformin 1,000 mg 24 hr 1 mg PO WEEKLY 08/12/23 11/02/23 tablet,extended release (gastric reten.) semaglutide 1 mg/dose (4 mg/3 mL) 1 mg SQ WEEKLY Diabetes 08/12/23 11/02/23 subcutaneous pen injector (Ozempic) Previous Rx's Medication Instructions Recorded ibuprofen 800 mg tablet 800 mg PO BID pain, mild #60 tabs 09/09/23 ondansetron 4 mg disintegrating 4 mg PO Q6H nausea and vomiting 09/09/23 tablet #30 tabs peg 3350-electrolytes 236 240 ml PO Q10M #4,000 mL 09/23/23 gram-22.74 gram-6.74 gram-5.86 gram solution (GaviLyte-G) gabapentin 100 mg capsule 100 mg PO TID PRN nerve pain 10 09/30/23 days #30 caps mupirocin 2 % topical ointment 1 applic topical BID #22 grams 10/13/23 sulfamethoxazole 800 1 tab PO BID cellulitis 5 days #10 10/13/23 mg-trimethoprim 160 mg tablet tabs (Bactrim DS) urea 40 % topical cream 1 applic topical BID dry skin 30 10/13/23 days #60 applic oxycodone 5 mg tablet 5 mg PO Q8H PRN pain 3 days #9 tabs 11/02/23 Allergies Allergy/AdvReac Type Severity Reaction Status Date / Time codeine [CODEINE] Allergy Unknown Verified 01/19/24 16:10 naproxen [NAPROXEN] Allergy Unknown Verified 01/19/24 16:10 [facility] Disclaimer: The information contained in this section may have been updated after the patient was seen, as this information can be updated by other users. Medical History No significant past medical history Surgical History No history of previous surgery Family History Other Family history of COPD (chronic obstructive pulmonary disease) Family history of asthma Family history of diabetes mellitus type II Family history of myocardial infarction Family history of stroke Social History Smoking Status: Unknown if ever smoked alcohol intake: never substance use type: denies use current occupational status: other Travel in the last 8 weeks: Inside the [place] household members: other housing: other ROS Obtained: Yes All systems reviewed & no additional complaints except as documented Physical Exam General General appearance: alert and in no apparent distress Head Head exam: atraumatic and normocephalic Eye Eye exam: Present PERRL, EOMI and conjunctival injection ENT ENT exam: Present normal oropharynx and normal external ear exam Neck Neck exam: Present normal inspection and full ROM Chest Chest inspection: Present normal inspection and symmetric chest wall rise; Absent tenderness Respiratory Respiratory exam: Present normal lung sounds bilaterally; Absent respiratory distress Cardiovascular Cardiovascular exam: Present regular rate and normal rhythm Abdominal Exam Abdominal exam: Present soft; Absent distention, tenderness or guarding Extremities Exam Extremities exam: Present normal inspection; Absent edema or joint swelling Back Exam Back exam: Present normal inspection; Absent tenderness Neurological Exam Neurological exam: Present alert and oriented X3; Absent motor sensory deficit Psychiatric Psychiatric exam: Present normal affect and normal mood Skin Skin exam: Present warm, dry and normal color Lymphatic Lymphatic Findings: no adenopathy Medical Decision Making Medical Records Medical records reviewed: Yes I reviewed the patient's medical records. Eduardo Inquiry Pt receiving controlled substance: No Eduardo was queried for this patient: No Vital Signs: 02/25/24 22:47 02/25/24 23:28 Temperature 98.2 F Temperature Source Oral Pulse Rate 78 Respiratory Rate 16 18 Blood Pressure 146/89 H Blood Pressure Source Automatic Cuff Blood Pressure Position Sitting 02 Sat by Pulse Oximetry 98 Oxygen Delivery Method Room Air Room Air Lab Data Lab results reviewed: Yes I reviewed the patient's lab results. Orders (Tests/Meds): ED MEDICATIONS Discontinued Medications Generic Name Dose Route Start Last Admin Trade Name Freq PRN Reason Stop Dose Admin Erythromycin 0.5 gm 02/25/24 23:19 02/25/24 23:24 Erythromycin Base 1 Gm Oint...G. OP 02/25/24 23:20 0.5 gm ONCE ONE Administration Fluorescein Sodium 1 mg 02/25/24 23:21 02/25/24 23:24 Fluorescein Sodium 1mg Strip OP 02/25/24 23:22 1 mg ONCE ONE Administration Tetracaine HCl 0 ml 02/25/24 23:20 02/25/24 23:25 Tetracaine 0.5% Opth Makeda 15ml OP 02/25/24 23:21 1 ml ONCE ONE Administration Medical Decision Narrative: 43-year-old male presents with left eye redness for the last couple of days, now with right eye redness. History was obtained interactive discussion with patient, family. On arrival, patient is [afebrile, hemodynamically stable, satting appropriately, alert, oriented x4, GCS 15], moving all extremities spontaneously. Full physical exam performed and significant for mild right and moderate left conjunctival injection. Pupils equal round reactive to light, extraocular movements intact without pain, patient reports normal vision. Differential includes but is not limited to allergic conjunctivitis, viral/bacterial conjunctivitis, corneal abrasion, environmental exposure, glaucoma, zoster ophthalmicus Exam of the eye shows no corneal abrasions on fluorescein staining. Patient has normal intraocular pressures, 14 bilaterally. Given this, low concern for emergent pathology at this time. Most likely viral conjunctivitis based on history and exam, but will treat with erythromycin prophylactically. Patient discharged in stable conditions with instructions return to the ER or see an lieutenant shift supervisor if his symptoms worsen or do not improve. Procedures Risk/Benefits of Procedure(s) Were Explained: Yes Critical Care Critical Care Time Critical Care Time: No
[2024-02-25] MEDS: FLUORESCEIN SODIUM 1MG STRIP 1 MG OP (23:24)
[2024-02-25] MEDS: ERYTHROMYCIN BASE 1 GM OINT...G. 0.5 GM OP (23:24)
[2024-02-25] MEDS: TETRACAINE 0.5% OPTH SOL 15ML OP (23:25)
[2024-02-25 23:28] VITALS: BP 146/89; PULSE 78; RESP 18; TEMP 36.8; O2SAT 96
== END 2024-02-25 23:30 | disposition home or self-care (01) ==
PROVIDERS: Emergency Provider Emergency Medicine; PCP Nurse Practitioner Family
DX: H10.33 Unspecified acute conjunctivitis, bilateral (principal)
CPT/HCPCS: 99283

== ENCOUNTER 2024-03-28 15:34 | Emergency (ER) | payer OTHER, SELFPAY ==
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
[2024-03-28 15:41] VITALS: BP 156/101; PULSE 92; RESP 20; TEMP 36.8; O2SAT 98; BMI 34.4
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
[2024-03-28] MEDS: predniSONE 20MG TAB 60 MG PO (16:33)
[2024-03-28] MEDS: METHOCARBAMOL 500MG TABLET 500 MG PO (16:33)
[2024-03-28] MEDS: ACETAMINOPHEN 500MG TAB 1000 MG PO (16:34)
[2024-03-28] MEDS: LIDOCAINE 5% TRANSDERMAL PATCH 1 EACH TP (16:35)
[2024-03-28 18:01] VITALS: BP 148/86; PULSE 88; RESP 18; TEMP 36.7; O2SAT 98
== END 2024-03-28 18:45 | disposition home or self-care (01) ==
PROVIDERS: Emergency Provider Emergency Medicine; PCP Nurse Practitioner Family
DX: M54.6 Pain in thoracic spine (principal); V49.40XA Driver injured in collision with unspecified motor vehicles in traffic accident, initial encounter; Y92.410 Unspecified street and highway as the place of occurrence of the external cause
CPT/HCPCS: 72128; 72131; 96361; 96374; 96375; 99284

== ENCOUNTER 2024-04-07 06:43 | Outpatient (CLI) | payer OTHER, SELFPAY ==
--- NOTE | 2024-04-07 06:46 | CT_ITS ---
FINAL REPORT TECHNIQUE: Axial imaging of the chest was obtained without contrast. Reformatted images were also obtained and reviewed.This study was performed with techniques to keep radiation doses as low as reasonably achievable, (ALARA). Individualized dose reduction technique using automated exposure control or adjustment of mA and/or kV according to the patient's size were employed. CLINICAL HISTORY: PULMONARY NODULE COMPARISON: 03/28/2024 FINDINGS: There is no axillary adenopathy. There is no hilar or mediastinal mass or adenopathy. Heart size is normal. There is no pericardial or pleural effusion. Limited images of the upper abdomen are unremarkable. There is a 28 mm subcarinal lymph node which is stable. 4 mm nodule in the medial right upper lobe on image 15 and 7 mm nodule in the medial right lower lobe on image 28 are both unchanged. There is a calcified granuloma in the right lung. IMPRESSION: Stable pulmonary nodules. Recommend 6-month follow-up. Reviewed, Interpreted and Dictated by Jim Lazaro III, MD Transcribed by Anh Cha Authenticated and . [facility]
== END 2024-04-07 23:59 | disposition home or self-care (01) ==
LOC: RAD 06:43
PROVIDERS: PCP Nurse Practitioner Family; Visit Provider Nurse Practitioner Family
DX: R91.1 Solitary pulmonary nodule (principal)
CPT/HCPCS: 71250

== ENCOUNTER 2024-04-12 08:44 | Outpatient (CLI) | payer SELFPAY | END 2024-04-12 23:59 | disposition home or self-care (01) | PROVIDERS: PCP Nurse Practitioner Family; Visit Provider Nurse Practitioner Family | DX: Z02.4 Encounter for examination for driving license (principal) ==

== ENCOUNTER 2024-05-09 17:31 | Emergency (ER) | payer OTHER, SELFPAY ==
[2024-05-09 18:35] VITALS: BP 127/79; PULSE 119; RESP 22; TEMP 36.7; O2SAT 98; BMI 39.0
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
[2024-05-09 19:15] VITALS: BP 127/79; PULSE 119; RESP 22; TEMP 36.7; O2SAT 98
== END 2024-05-09 19:17 | disposition home or self-care (01) ==
PROVIDERS: Emergency Provider Nurse Practitioner; PCP Nurse Practitioner Family
DX: M54.6 Pain in thoracic spine (principal); M62.830 Muscle spasm of back
CPT/HCPCS: 99212; 99214; G0463

== ENCOUNTER 2024-05-18 09:22 | Outpatient (POV) | payer OTHER, SELFPAY ==
[2024-05-18 10:15] VITALS: BP 115/67; PULSE 89; RESP 18; O2SAT 97; BMI 36.8
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
== END 2024-05-18 23:59 | disposition home or self-care (01) ==
LOC: SC.PAIN 09:26
PROVIDERS: PCP Nurse Practitioner Family; Visit Provider Nurse Practitioner Family
DX: M51.36 Other intervertebral disc degeneration, lumbar region (principal); M51.34 Other intervertebral disc degeneration, thoracic region; M79.18 Myalgia, other site; Z73.89 Other problems related to life management difficulty; F17.210 Nicotine dependence, cigarettes, uncomplicated
CPT/HCPCS: 99202; G0463

== ENCOUNTER 2024-05-21 16:14 | Emergency (ER) | payer OTHER, SELFPAY ==
[2024-05-21 16:16] VITALS: BP 134/80; PULSE 117; RESP 22; TEMP 36.9; O2SAT 98; BMI 38.7
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
[2024-05-21] MEDS: OXYCODONE 5MG IMMEDIATE RELEASE TABLET 5 MG PO (17:00)
[2024-05-21] MEDS: METHOCARBAMOL 500MG TABLET 500 MG PO (17:00)
[2024-05-21] MEDS: LIDOCAINE 5% TRANSDERMAL PATCH 1 EACH TP (17:00)
[2024-05-21] MEDS: ACETAMINOPHEN 500MG TAB 1000 MG PO (17:00)
[2024-05-21 17:31] VITALS: BP 113/69; PULSE 98; O2SAT 93
[2024-05-21 19:33] VITALS: BP 142/64; PULSE 72; RESP 18; TEMP 36.5; O2SAT 98
== END 2024-05-21 19:35 | disposition home or self-care (01) ==
PROVIDERS: Emergency Provider Emergency Medicine; PCP Nurse Practitioner Family
DX: M54.6 Pain in thoracic spine (principal); F17.210 Nicotine dependence, cigarettes, uncomplicated; V89.9XXA Person injured in unspecified vehicle accident, initial encounter; Y92.9 Unspecified place or not applicable
CPT/HCPCS: 72128; 73010; 73030; 99284

== ENCOUNTER 2024-06-01 15:37 | Outpatient (POV) | payer OTHER, SELFPAY ==
[2024-06-01 15:54] VITALS: BP 127/74; PULSE 98; RESP 16; O2SAT 98; BMI 39.2
--- NOTE | 2024-06-01 16:09 | EXP.PAIN.SOA ---
[facility] Disclaimer: The information contained in this section may have been updated after the patient was seen, as this information can be updated by other users. Medical History (Updated 05/21/24 @ 19:24 by DAVID Woodall) Dyspnea on exertion Lung nodule Smoking greater than 30 pack years Tobacco dependence No significant past medical history Surgical History No history of previous surgery Family History Other Family history of COPD (chronic obstructive pulmonary disease) Family history of asthma Family history of diabetes mellitus type II Family history of myocardial infarction Family history of stroke Social History (Updated 05/18/24 @ 10:16 by Ladi Pruitt RN) Smoking Status: Current every day smoker tobacco type: cigarettes packs per day: 1 alcohol intake: never substance use type: denies use current occupational status: employed Travel in the last 8 weeks: None household members: other housing: other PM Subjective & Objective Subjective Subjective:: Patient presents today for 2-week follow-up. Today he rates his pain a 7 out of 10. Patient denies any new trauma or injury. He states he is still having severe pain and that the compounded cream and ropinirole made no changes. Patient is upset and is stating that he wants to be out of pain and is using language today to express his frustrations. Patient states that he has had x-rays and CTs and that no one is offering to order advanced imaging such as the MRI. Patient states that he went to the ER from her last visit and they just recommended him to follow back up with our office. Patient states he does not have time to constantly go to the ER due to the worsening pain symptoms. Patient has been tried on gabapentin in the past. His Eduardo has been reviewed. Review of Systems: General: No recent weight changes, no fever, no sleep disturbances Respiratory: No cough, no shortness of air, no recurring pulmonary infections Cardiovascular/peripheral vascular: No chest pain, no palpitations, no edema, no shortness of breath Gastrointestinal: No new onset incontinence, normal bowel movements reported Genitourinary: No new onset incontinence Musculoskeletal: Mid back pain, low back pain, leg pain Psychiatric: [Normal mood/affect] Neurological: [Denies weakness in extremities], [denies balance issues] Pain at rest (0-10 scale): 7 Objective Objective:: Physical Exam: General: Alert and oriented x3, no acute distress, pleasant and cooperative Lungs: Respirations even and unlabored, symmetrical chest expansion Eyes: PERRL Musculoskeletal: Flexion and extension of thoracic, lumbar [spine] somewhat guarded secondary to pain Neurological: Speech clear, no gross sensory deficit Has patient had previous pain injection?: No Conservative treatment options previously tried: Home exercise plan Length of treatment: Longer than 6 weeks Meds Home Medications and Allergies Home Medications ?Medication ?Instructions ?Recorded ?Confirmed ?Type metformin 1,000 mg 24 hr 1 mg PO WEEKLY 08/12/23 06/01/24 History tablet,extended release (gastric reten.) semaglutide 1 mg/dose (4 mg/3 mL) 1 mg SQ WEEKLY Diabetes 08/12/23 06/01/24 History subcutaneous pen injector (Ozempic) meloxicam 7.5 mg tablet 7.5 mg PO DAILY 05/09/24 06/01/24 History methocarbamol 750 mg tablet 750 mg PO TID PRN muscle spasm #30 05/09/24 06/01/24 Rx tabs diazepam 5 mg tablet (Valium) 5 mg PO HS PRN muscle spasm #2 tabs 05/21/24 06/01/24 Rx New Prescriptions to Start Prescriptions: Allergies Allergy/AdvReac Type Severity Reaction Status Date / Time codeine [CODEINE] Allergy Unknown Verified 05/09/24 13:22 naproxen [NAPROXEN] Allergy Unknown Verified 05/09/24 13:22 Assessment and Plan *Assessment and plan (1) Degenerative disc disease, lumbar: Status: Acute Category: Medical Code(s): M51.36 - Other intervertebral disc degeneration, lumbar region (2) Degenerative disc disease, thoracic: Status: Acute Category: Medical Code(s): M51.34 - Other intervertebral disc degeneration, thoracic region (3) Myofascial pain on right side: Status: Acute Category: Medical Code(s): M79.18 - Myalgia, other site Plan Patient was counseled that we are an interventional pain clinic and again that we do use injection therapy as her main go to. Patient was counseled that we are just treating his symptoms and that there is no guarantee that the injections will take his pain all the way. Patient is scheduled for trigger point injections of his right thoracic paraspinous muscles where he had extreme pain at the last visit and ended up calling after he left to schedule these injections. I did review over with the patient that if he is not happy with what options we present that it is 100% up to him whether or not he would like to continue to come here. Patient is scheduled for Wednesday of this next week for his injections. He was counseled that he will get a 2-week follow-up from that appointment to see how he does with these injections. I did also admissions counselor the patient that I do not have a problem ordering the MRI however it is dependent on insurance as well as the injections are and that there is no fast response generally and that we are limited. Patient acknowledges understanding. Patient will percent next week for his trigger point injections. We will go ahead and proceed forward with trying to order the MRI without contrast of his thoracic and lumbar spine. Patient has been instructed to contact the clinic with any concerns before the next appointment. Dr. Segura has reviewed this note and agrees with this plan of care. This note was dictated using voice recognition software and make contain errors or omissions. All injections are used with Lidocaine or Bupivacaine and Depo Medrol.
== END 2024-06-01 23:59 | disposition home or self-care (01) ==
LOC: SC.PAIN 15:37
PROVIDERS: PCP Nurse Practitioner Family; Visit Provider Nurse Practitioner Family
DX: M51.34 Other intervertebral disc degeneration, thoracic region; M79.18 Myalgia, other site; F17.210 Nicotine dependence, cigarettes, uncomplicated; M51.360 Other intervertebral disc degeneration, lumbar region with discogenic back pain only
CPT/HCPCS: 99212; G0463

== ENCOUNTER 2024-06-06 10:51 | Day surgery (SDC) | payer OTHER, SELFPAY ==
[2024-06-06 11:20] VITALS: BP 136/66; BP 172/107; PULSE 86; PULSE 95; RESP 16; RESP 18; O2SAT 99; BMI 39.2
[2024-06-06] MEDS: LIDOCAINE 1% 5ML PF VIAL 5 ML (11:22)
[2024-06-06] MEDS: methylPREDNISolone ACETATE 80MG/ML VIAL 80 MG (11:22)
[2024-06-06] MEDS: BUPIVACAINE 0.25% 10ML INJ 25 MG IJ (11:23)
--- NOTE | 2024-06-06 11:58 | EXP.PAIN.PRO ---
Procedure Date: 06/06/24 Time: 11:00 Anesthesiologist:: Harris Gross CRNA Complications:: None Pre-procedure Diagnosis:: Myofascial pain right thoracic and lumbar paraspinous muscle Post-procedure Diagnosis:: Same. Indications for Procedure:: Patient is a pleasant 44-year-old male comes our clinic today for trigger point injection of the right thoracic and lumbar paraspinous muscle. He describes pain constant, dull, sharp, stabbing in both areas. He is having difficulty with flexion of the cervical spine due to the pain in the thoracic area. He is having difficulty with flexion of the lumbar spine due to pain in the lumbar paraspinous muscle on the right. He rates his pain 9/10. Procedure Details:: Details of the procedure explained to the patient. The patient taken procedure and patient placed in the sitting position. The area of the right thoracic and lumbar paraspinous muscle was cleaned using chlorhexidine as a cleansing solution. Using a 25-gauge inch and half needle the right thoracic paraspinous muscle at the level of T9 was injected in a fanning fashion with 5 cc of solution containing 0.25% bupivacaine, 1% lidocaine and 20 mg of Depo-Medrol. The same procedure was carried out over the right lumbar paraspinous muscle at the L3 level. Patient tolerated procedure without difficulty. No complications. Plan and Disposition:: Patient was discharged without incident.
== END 2024-06-06 11:29 | disposition home or self-care (01) ==
PROVIDERS: PCP Nurse Practitioner Family; Visit Provider Nurse Anesthetist, Certified Registered
DX: M79.18 Myalgia, other site (principal)
CPT/HCPCS: 20552; J1010

== ENCOUNTER 2024-08-14 12:37 | Outpatient (CLI) | payer OTHER, SELFPAY ==
--- NOTE | 2024-08-14 12:45 | XR_ITS ---
FINAL REPORT CLINICAL HISTORY: foot pain FINDINGS: LEFT FOOT Three views of the left foot demonstrate no acute fracture or dislocation. The visualized joint spaces are normally aligned. There are minimal degenerative changes of the midfoot. There is moderate calcaneal spurring. The soft tissues are unremarkable. IMPRESSION: Degenerative changes without acute bony abnormality. Reviewed, Interpreted and Dictated by Jess Carolina MD Transcribed by Anh Cha Authenticated and [facility]
--- NOTE | 2024-08-14 12:45 | XR_ITS ---
FINAL REPORT CLINICAL HISTORY: foot pain FINDINGS: RIGHT FOOT 3 views of the right foot were obtained. There is no acute fracture or dislocation. There are minimal degenerative changes of the midfoot. Moderate calcaneal spurring is seen. Visualized joint spaces are normally aligned. Soft tissues are unremarkable. IMPRESSION: Degenerative changes without acute bony abnormality. Reviewed, Interpreted and Dictated by Jess Carolina MD Transcribed by Anh Cha Authenticated and [facility]
== END 2024-08-14 23:59 | disposition home or self-care (01) ==
LOC: RAD 12:40
PROVIDERS: PCP Nurse Practitioner Family; Visit Provider Podiatrist
DX: M79.671 Pain in right foot (principal); M79.672 Pain in left foot
CPT/HCPCS: 73630

== ENCOUNTER 2024-09-07 13:06 | Outpatient (CLI) | payer OTHER, SELFPAY ==
--- NOTE | 2024-09-07 13:09 | XR_ITS ---
FINAL REPORT CLINICAL HISTORY: evaluate 5th met fracture site COMPARISON: 08/14/2024 FINDINGS: RIGHT FOOT 3 views of the right foot were obtained. Cortical disruption is once again noted at the base of the fifth metatarsal, similar to the previous exam. Moderate sized plantar calcaneal spurs are present. Visualized joint spaces are normally aligned. Soft tissues are unremarkable. IMPRESSION: Cortical disruption is once again noted at the base of the fifth metatarsal, similar to the prior exam. Reviewed, Interpreted and Dictated by Papi Martinez MD Transcribed by Cathy Drew Authenticated and [facility]
== END 2024-09-07 23:59 | disposition home or self-care (01) ==
PROVIDERS: PCP Nurse Practitioner Family; Visit Provider Podiatrist
DX: M79.671 Pain in right foot (principal); S92.354S Nondisplaced fracture of fifth metatarsal bone, right foot, sequela
CPT/HCPCS: 73630

== ENCOUNTER 2024-09-14 09:09 | Outpatient (POV) | payer OTHER, SELFPAY ==
[2024-09-14 09:23] VITALS: BP 127/70; PULSE 93; RESP 16; O2SAT 98; BMI 34.0
--- NOTE | 2024-09-14 09:38 | A.OFFVIS_ITS ---
[facility] Disclaimer: The information contained in this section may have been updated after the patient was seen, as this information can be updated by other users. Medical History Dyspnea on exertion Lung nodule Smoking greater than 30 pack years Tobacco dependence No significant past medical history Surgical History No history of previous surgery Family History Other Family history of COPD (chronic obstructive pulmonary disease) Family history of asthma Family history of diabetes mellitus type II Family history of myocardial infarction Family history of stroke Social History Smoking Status: Current every day smoker tobacco type: cigarettes packs per day: 1 alcohol intake: never substance use type: denies use current occupational status: other Travel in the last 8 weeks: None household members: other housing: other PM Subjective & Objective Subjective Subjective:: Patient is a 44-year-old male who presents today for 5-month follow-up. Today he rates his pain a 6 out of 10. Patient denies any new trauma or injury. He states he still has the chronic low back pain that does radiate down both legs and into his bilateral feet. Patient states that it is a constant pain with worsening burning sensation down the left leg. Patient states that he has been to see Dr. Aragon here for the neuropathy and that she was recommending him follow back up with our office as well as send him for referral to Dr. Zurita. Patient does state the pain interferes with his ability perform activities of daily living such as cooking and cleaning. Patient did have trigger point injections of his right thoracic and lumbar paraspinous muscles back in May however he states that he did not notice any additional improvement from these injections. Patient denies states that he just wants to be out of pain. Patient has tried and failed conservative therapies including oral medications, heat and ice, topicals, at home stretching exercise for longer than 12 weeks. His Eduardo has been reviewed. Review of Systems: General: No recent weight changes, no fever, no sleep disturbances Respiratory: No cough, no shortness of air, no recurring pulmonary infections Cardiovascular/peripheral vascular: No chest pain, no palpitations, no edema, no shortness of breath Gastrointestinal: No new onset incontinence, normal bowel movements reported Genitourinary: No new onset incontinence Musculoskeletal: Low back pain, leg pain, bilateral feet pain Psychiatric: [Normal mood/affect] Neurological: [Denies weakness in extremities], [denies balance issues] Pain at rest (0-10 scale): 6 Objective Objective:: Physical Exam: General: Alert and oriented x3, no acute distress, pleasant and cooperative Lungs: Respirations even and unlabored, symmetrical chest expansion Eyes: PERRL Musculoskeletal: Flexion and extension of lumbar [spine] somewhat guarded secondary to pain, [antalgic gait noted] left leg raise Neurological: Speech clear, no gross sensory deficit Has patient had previous pain injection?: No Conservative treatment options previously tried: Home exercise plan Length of treatment: Longer than 12 weeks Meds Home Medications and Allergies Home Medications ?Medication ?Instructions ?Recorded ?Confirmed ?Type metformin 1,000 mg 24 hr 1 mg PO WEEKLY 08/12/23 09/14/24 History tablet,extended release (gastric reten.) semaglutide 1 mg/dose (4 mg/3 mL) 1 mg SQ WEEKLY Diabetes 08/12/23 09/14/24 History subcutaneous pen injector (Ozempic) diclofenac sodium 1 % topical gel 4 g topical QID PRN pain 30 days 08/14/24 09/14/24 Rx #100 grams meloxicam 7.5 mg tablet 7.5 mg PO DAILY pain 30 days #30 08/14/24 09/14/24 Rx tabs New Prescriptions to Start Prescriptions: Allergies Allergy/AdvReac Type Severity Reaction Status Date / Time codeine (CODEINE) Allergy Unknown Verified 09/07/24 13:44 naproxen (NAPROXEN) Allergy Unknown Verified 09/07/24 13:44 Assessment and Plan *Assessment and plan (1) Diabetes mellitus with diabetic neuropathy: Status: Acute Qualifiers: Diabetes mellitus type: type 2 Diabetes mellitus penitentiary insulin use: without termite exterminator helper use Qualified Code(s): E11.40 - Type 2 diabetes mellitus with diabetic neuropathy, unspecified Category: Medical Code(s): E11.40 - Type 2 diabetes mellitus with diabetic neuropathy, unspecified (2) Degenerative disc disease, thoracic: Status: Acute Category: Medical Code(s): M51.34 - Other intervertebral disc degeneration, thoracic region (3) Degenerative disc disease, lumbar: Status: Acute Qualifiers: Disc-related pain type: discogenic back pain and lower extremity pain Qualified Code(s): M51.362 - Other intervertebral disc degeneration, lumbar region with discogenic back pain and lower extremity pain Category: Medical Code(s): M51.369 - Other intervertebral disc degeneration, lumbar region without mention of lumbar back pain or lower extremity pain (4) Lumbar radiculopathy: Status: Acute Category: Medical Code(s): M54.16 - Radiculopathy, lumbar region Plan Patient continues to experience significant pain that does radiate from his low back with numbness and tingling down to his bilateral feet. Patient did have limited range of motion of his lumbar spine with a positive left leg raise during today's exam. I did discuss with the patient that I do believe he would benefit from a lumbar epidural steroid injection as well as possible spinal cord stimulator trial in future. We did review over the risk and benefits of the injection and he would like to proceed forward with this plan of care. Patient is not on any blood thinners. Patient is diabetic and I did deputy chief counsel him to take his medications as prescribed the day of this procedure. If his blood glucose is closer to 300 he will have to be rescheduled. Patient has tried and failed conservative therapy including oral medication, heat and ice, topicals, at home stretching exercise for the longer than 12 weeks. Patient will be scheduled for an LESI L4-L5 under fluoroscopy. Patient also at our last visit at the beginning of May was ordered for MRI of his thoracic and lumbar spine. Our records show that we were able to get this approved however it was never scheduled and completed. Our office is unsure whether this was an issue with radiology getting a hold of the patient to schedule or whether or not the patient declined. We will review this in future. Patient has been instructed to contact the clinic with any concerns before the next appointment. Dr. Segura has reviewed this note and agrees with this plan of care. This note was dictated using voice recognition software and make contain errors or omissions. All injections are used with Lidocaine, Bupivacaine and Depo Medrol. Occasionally urine drug screen is needed to verify patient's compliance with our office pain contract. This is ordered based off specific treatments related to chronic pain with the potential to abuse certain medications.
== END 2024-09-14 23:59 | disposition home or self-care (01) ==
LOC: SC.PAIN 09:10
PROVIDERS: PCP Nurse Practitioner Family; Visit Provider Nurse Practitioner Family
DX: E11.40 Type 2 diabetes mellitus with diabetic neuropathy, unspecified (principal); M51.34 Other intervertebral disc degeneration, thoracic region; M51.16 Intervertebral disc disorders with radiculopathy, lumbar region; F17.210 Nicotine dependence, cigarettes, uncomplicated; Z73.89 Other problems related to life management difficulty
CPT/HCPCS: 99212; G0463

== ENCOUNTER 2024-10-02 06:26 | Outpatient (CLI) | payer OTHER, SELFPAY ==
--- NOTE | 2024-10-02 06:31 | CT_ITS ---
FINAL REPORT TECHNIQUE: Axial imaging of the chest was obtained without contrast. Reformatted images were also obtained and reviewed.This study was performed with techniques to keep radiation doses as low as reasonably achievable, (ALARA). Individualized dose reduction technique using automated exposure control or adjustment of mA and/or kV according to the patient's size were employed. CLINICAL HISTORY: 6 MONTH FOLLOW UP NODULE COMPARISON: 04/07/2024 FINDINGS: There is no axillary adenopathy. There is an aggregate of lymph nodes in the subcarinal region which appear stable. Heart size is normal. There is no pericardial or pleural effusion. Limited images of the upper abdomen are unremarkable. There is a stable, 4 mm noncalcified nodule in the medial right upper lobe. Pleural-based nodule in the posterior medial right upper lobe measuring 7 mm is seen on image 89 of series 3, also stable. IMPRESSION: Stable right lung nodules and subcarinal adenopathy. Reviewed, Interpreted and Dictated by Papi Martinez MD Transcribed by Anh Cha Authenticated and [facility]
== END 2024-10-02 23:59 | disposition home or self-care (01) ==
LOC: RAD 06:28
PROVIDERS: PCP Nurse Practitioner Family; Visit Provider Nurse Practitioner Family
DX: R91.1 Solitary pulmonary nodule (principal)
CPT/HCPCS: 71250

== ENCOUNTER 2025-01-16 10:20 | Emergency (ER) | payer SELFPAY ==
[2025-01-16 10:26] VITALS: BP 139/84; PULSE 89; O2SAT 98
--- OUTSIDE RECORDS SUMMARY | 2025-01-16 10:27 | XMS_ITS | Data Portability ---
Author Organization [place] - [facility] - [place] & RUDDY Cesar ADMIN Address [address] [place] [phone] Assessment Encounter Date Assessment Date Assessment LastModified by Organization Details LastModified Time 01/07/2023 01/07/2023 Mr. Ruiz was referred by [facility] for management of chronic bilateral knee pain. Patient has diabetes, controlled with Metformin. Patient complains of bilateral knee pain (worse on the left) that affects his daily function, likely associated with arthritis, as evidenced by history and physical exam. To address the patient's pain: I will proceed with scheduling a bilateral knee steroid injection. The patient has diabetes. As such, I will remain recognizant during therapeutic injections. I will proceed with the left knee first and then proceed with the right knee. I had a detailed discussion with the patient regarding the procedure and the risks/benefits and addressed any questions/concern s today. I personally reviewed the patient's recent bilateral knee x-rays today. The patient performs at home exercises/stretch es and other conservative measures for pain management with minimal benefit. - Schedule a bilateral knee steroid injection (left first then right on separate days) - Follow up 2 weeks post injection to assess efficacy I have discussed in great detail our potential treatment options which would include a rehabilitative approach to care. This program would include medication management, Physical Therapy, consideration for interventional procedures as appropriate, and lifestyle modification (diet, weight loss, exercise, smoking/tobacco cessation, holistic approach including meditation and yoga). The patient understands and agrees prior to proceeding with this plan. _ __ __ __ __ __ __ __ __ __ __ __ __ __ __ __ __ __ __ __ __ __ __ __ __ __ __ __ _ RECORDS REVIEW: As per clinic policy, we will have the patient sign a release to obtain previous imaging and clinical notes. --- PROCEDURE: I counseled the patient extensively and informed of the risks of the procedure, including the risk of paralysis, nerve damage, respiratory arrest, arrhythmias, stroke, weakness, and infection, which although very low, could result in or disability. The patient acknowledged to me that they understand and accept these risks. RN EDUCATION Extensive coordination of care provided by RN to educate patient on upcoming procedure and to coordinate obtaining extensive incoming medical records. _ __ __ __ __ __ __ __ __ __ __ __ __ __ __ __ __ __ __ __ __ __ __ __ __ __ __ __ _ PSYCH: Pain affecting Neuro-psych behavior was discussed. Discussed about pain psychological counseling as a part of the multimodal approach to pain treatment. _ __ __ __ __ __ __ __ __ __ __ __ __ __ __ __ __ __ __ __ __ __ __ __ __ __ __ __ _ REHABILITATION: Discussed with the patient the importance of diet, daily physical activity and PT. Discussed with the patient the need to be scheduled for physical therapy since physical therapy will prolong the benefits of the procedure and interventions. _ __ __ __ __ __ __ __ __ __ __ __ __ __ __ __ __ __ __ __ __ __ __ __ __ __ __ __ _ CHING: [id number] I have reviewed patient's CHING report prior to prescribing Schedule II, III, and IV medications that require review by law. [email or web address] Not available 01/07/2023 13:12:48 Plan of Treatment Reminders Order Date Submit Date Provider Last Modified By Organization Details Last Modified Time Details Appointments None recorded. Lab None recorded. Referral None recorded. Procedures intra-tavo cular injection, knee (PROC) - 00114, 16629 left knee injection 2022 023 Not available 3 15:24:16 Surgeries None recorded. Imaging None recorded. Medication Orders None recorded. Patient TargetsNo targets recorded. Patient InstructionsNo instructions recorded. Reason for Referral None Reported. Problems Name Problem SNOMED Code Status Onset Date Resolution Date Notes Provider Name and Address Organization Details Recorded Time Pain of bilateral knee joints 51179824045275 4 Active 2022 Sharona Loya null, [place] - [facility] - [place] & [place] 3 08:42:50 Bilateral stiffness of knee joints 11350881553834 109 Active 2022 Sharona Loya null, [place] - [facility] [place] & [place] 3 13:04:03 Obesity 799860094 Active 2022 Sharona Loya null, [place] - [facility] - [place] & [place] 3 13:04:17 Swelling of knee joint 278257434 Active 2022 Sharona Loya null, [place] - [facility] [place] & [place] 3 13:05:26 Bilateral arthritis of knees 13818493484916 08 Active 2022 Sharona Loya null, [place] - [facility] - [place] & [place] 3 13:06:57 Problem Notes None recorded. Medical Equipment None Reported. Allergies Allergen ID Allergen Name Allergen Category Reaction Reaction Severity Criticality Documentation Date Start Date Code Code System Note Provider Name and Address Organization Details Recorded Time 42204 naproxen medicatio n Not available Not available Not available 01/07/2023 7258 RxNorm TIM Peace [facility] & [place] 3 08:39:55 Medications Name Sig Start Date Stop Date Status Note LastModified by Organization Details LastModified Time metformin 500 mg tablet TAKE 1 TABLET BY MOUTH TWICE DAILY FOR 15 DAYS 01/07 completed Not Available Not Available Not Available atorvastatin 20 mg tablet TAKE 1 TABLET BY MOUTH ONCE DAILY 01/07 completed Not Available Not Available Not Available nicotine 14 mg/24 hr daily transdermal patch 01/07 completed Not Available Not Available Not Available prednisone 20 mg tablet 01/07 completed Not Available Not Available Not Available tramadol 50 mg tablet TAKE 1 TABLET BY MOUTH EVERY 8 HOURS NEEDED 01/07 completed Not Available Not Available Not Available nicotine 21 mg/24 hr daily transdermal patch 01/07 completed Not Available Not Available Not Available metformin ER 500 mg tablet,extend ed release 24 hr TAKE 1 TABLET BY MOUTH TWICE DAILY WITH MEALS active Not Available Not Available No t Available diclofenac 1 % topical gel 01/07 completed Not Available Not Available Not Available Vitals Date Recorded Body weight Body mass index (BMI) Body height Body temperature Oxygen saturation Oxygen saturation in Arterial blood by Pulse oximetry Heart rate Systolic blood pressure Diastolic blood pressure Provider Name and Address Organization Details Last Updated DateTime 3 317952. 63 g 39.8 kg/m2 187.96 cm 97.3 [degF] 97 % 97 % 83 /min 141 mm[Hg] 66 mm[Hg] [facility] [place] 3 08:37:12 Social History Question Answer Notes LastModified by Organizat ion Details LastModified Time Tobacco Smoking Status Current Every Day Smoker [facility] [place] 01/07/2023 08:43:34 How Much Tobacco Do You Smoke? 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 Family History Nothing Reported. Medical History Condition Response Diabetes Y Past Encounters Encounter ID Performer Location Encounter Start Date Encounter Closed Date Diagnosis/Indication Diagnosis SNOMED-CT Code Diagnosis ICD10 Code Diagnosis Note [id number] Hayden Gabriel MD [facility] [address] [facility] e [address] [place] [id number] 01/07/2023 08:15:30 01/07/2023 10:22:01 Pain of bilateral knee joints 8286383720 80061 M25.561 M25.562 Bilateral stiffness of knee joints 0248078205 4711730 M25.661 M25.662 Obesity 685419104 E66.9 Swelling o f knee joint 703977633 M25.469 Bilateral arthritis of knees 0107627701 627283 M13.861 M13.862 Health Concerns Section Related Observation LastModified by Organization Detai ls LastModified Time None Recorded Concern Status LastModified by Organization Details LastModified Time None Recorded Advance Directives Directive None Recorded Payers Insurance Date Sequence Insurance Name Policy Number Policy De Santiago Covered Member ID De Santiago Member ID Guarantor Name 01/20/2023 1 [facility] (MEDICAID REPLACEMENT - HMO) [id number] Dipesh Ruiz [id number] Dipesh Ruiz Notes Date Note Type Note Provider Name and Address Organization Details Recorded Time 3 text/html Mr. Ruiz was referred by [facility] for management of chronic bilateral knee pain. Patient has diabetes, controlled with Metformin. Patient complains of bilateral knee pain (worse on the left) that affects his daily function. He states that he can barely bend to do ADLs due to pain. He goes on to say that if he gets in the floor, he has to have someone help him up. The patient performs at home exercises/stretches and other conservative measures for pain management with minimal benefit. 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 He wishes to discuss injections to help improve his ROM and daily function. Initial complaint: chronic knee painOnset: 2019Context: worsening over timeCharacter: sharp, aching, throbbingLocation: bilateral knees (worse on the left)Duration: constant with fluctuationsInitial Intensity: 5/10Worse: bending, changing positions, climbing stairs, standing, walking, activityBetter: restAssociated symptoms: Denies saddle anaesthesia, denies acute bowel/bladder changes, denies acute power loss.ADLs: The patient's pain interferes with daily chores, exercise, sleep, relationships, and walking.Current Pain Medications: nonePrior Pain Medications: noneNSAIDS/OTC: mildly helpfulNon-interventiona l Tx: nonePhysical Therapy: noneInterventional Tx: noneSurgery: noneImaging/Studies: none Hayden Gabriel MD [address], [place], [address], [facility] & [place] 01/08/2023 10:34:54
[2025-01-16 10:28] VITALS: BP 139/84; PULSE 91; RESP 20; TEMP 36.6; O2SAT 99; BMI 41.3
--- NOTE | 2025-01-16 10:28 | CT_ITS ---
FINAL REPORT TECHNIQUE: IV contrast enhanced exam This study was performed with techniques to keep radiation doses as low as reasonably achievable, (ALARA). Individualized dose reduction techniques using automated exposure control or adjustment of mA and/or kV according to the patient's size were employed. CLINICAL HISTORY: Left flank pain/back pain COMPARISON: 12/12/2019 FINDINGS: Abdomen: Lung bases are clear. The gallbladder is contracted. Fatty infiltration of the liver is present. There is mild gastric distention, likely related to a recent meal. The spleen, pancreas and adrenal glands are unremarkable. Kidneys show no mass or obstruction. No bowel obstruction or fluid collection is seen. Pelvis: The appendix is normal in appearance. Pelvic bowel loops are unremarkable. Mild diverticulosis of the sigmoid colon is present without acute inflammatory change. No fluid collection or adenopathy is seen. The bladder and prostate are unremarkable. IMPRESSION: No acute abnormality identified in the abdomen or pelvis. Reviewed, Interpreted and Dictated by Jess Carolina MD Transcribed by Cathy Drew Authenticated and [facility]
[2025-01-16 10:29] LABS: Microscopic, Urine URINE MICROSCOPIC (MICROSCOPIC)
--- NOTE | 2025-01-16 10:29 | ED_ITS ---
<Statement entered by Berta Marti DO - 01/16/25 14:48> I was consulted by the TIM, and we discussed the complexity of the problems being addressed. I approved the treatment and management plan for this patient's care in the emergency department, thus performing a substantive portion of the medical decision making. Berta Marti DO Discharge Plan Disposition Patient Disposition: Home, Self-Care Condition: Good Prescriptions Prescriptions: New methocarbamol 750 mg tablet 750 mg PO TID Qty: 20 0RF No Action metformin 1,000 mg tablet,ER maureen.retention 24 hr 1 mg PO WEEKLY Ozempic 1 mg/dose (4 mg/3 mL) pen injector 1 mg SQ WEEKLY Patient Comments: INJECT 1MG UNDER THE SKIN ONCE WEEKLY ON THE SAME DAY EACH WEEK meloxicam 7.5 mg tablet 7.5 mg PO DAILY 30 Days Qty: 30 2RF Referrals Follow up/Referrals: Phylicia Diaz APRN [Primary Care Provider] - See instructions Activity Restrictions/Add. Instructions Additional Instructions/Restrictions: Please return to the emergency department with any worsening signs or symptoms, please utilize ibuprofen Tylenol, muscle relaxers as needed for symptomatic relief, follow-up with your family doctor in the upcoming days. Clinical Impressions Clinical Impression: Flank pain, Myofascial pain on left side Instructions Patient Instructions: DI for Low Back Pain, DI for Flank Pain Print Language Print Language: Macanese Discharge ED Provider: Berta Marti General Adult HPI General Chief complaint: Back Pain/Injury Stated complaint: Poss. Kidney Stones. Lower Back Pain Time Seen by Provider: 01/16/25 10:24 Mode of Arrival: Ambulatory Source of Information: Patient Limitations: No Limitations History of Present Illness HPI narrative: 44-year-old male presents to the emergency department with a 2 to 3-day history of left-sided flank pain, no nausea no vomiting, constipation no diarrhea no urinary symptomatology no hematuria melena hematochezia hematemesis, no fever or chills, no chest pain or shortness of breath, she denies any trauma or inciting event, he has no real radicular symptomatology, no numbness or tingling no urinary bladder or bowel dysfunction, patient states he has never had a kidney stone but it feels like one . Patient other past medical history consistent with type 2 diabetes, obesity, KARL, CRPS, diabetic polyneuropathy, former smoker, data deficient history of degenerative disc disease of the spine. Initial triage vitals unremarkable. Denies any tobacco alcohol or drug use currently. Onset (ago): day(s) Related Data Home Medications ?Medication ?Instructions ?Recorded ?Confirmed metformin 1,000 mg 24 hr 1 mg PO WEEKLY 08/12/23 11/10/24 tablet,extended release (gastric reten.) semaglutide 1 mg/dose (4 mg/3 mL) 1 mg SQ WEEKLY Diabetes 08/12/23 11/10/24 subcutaneous pen injector (Ozempic) Previous Rx's ?Medication ?Instructions ?Recorded meloxicam 7.5 mg tablet 7.5 mg PO DAILY pain 30 days #30 08/14/24 tabs methocarbamol 750 mg tablet 750 mg PO TID #20 tabs 01/16/25 Allergies Allergy/AdvReac Type Severity Reaction Status Date / Time codeine (CODEINE) Allergy Unknown Verified 11/10/24 18:45 naproxen (NAPROXEN) Allergy Unknown Verified 11/10/24 18:45 [facility] Disclaimer: The information contained in this section may have been updated after the patient was seen, as this information can be updated by other users. Medical History (Updated 01/16/25 @ 12:06 by DAVID Lee) Tenderness of neck Pharyngitis Dyspnea on exertion Lung nodule Smoking greater than 30 pack years Tobacco dependence No significant past medical history Surgical History No history of previous surgery Family History Other Family history of COPD (chronic obstructive pulmonary disease) Family history of asthma Family history of diabetes mellitus type II Family history of myocardial infarction Family history of stroke Social History Smoking Status: Current every day smoker tobacco type: cigarettes packs per day: 1 alcohol intake: never substance use type: denies use current occupational status: other Travel in the last 8 weeks?: None household members: other housing: other Have you lived/traveled outside US in past 30 days?: No Contact w/someone who lives/traveled outside US past 30 days?: No Exposure to someone with infectious disease in past 14 days?: No Do you have a fever (greater than 100.4 F or 38 C)?: No Have you tested positive for COVID-19?: No Exposed to someone with COVID-19 in past 14 days?: No Do you have a sore throat?: No Do you have a cough?: No Do you have any weakness?: No Do you have any diarrhea?: No Are you experiencing any unusual bleeding?: No Do you have any muscle aches/pain?: Yes Do you have any abdominal pain?: No Are you experiencing loss of taste or smell?: No Other Medical History Have you received the Flu Vaccine for this season: No Have you received the Pneumonia Vaccine: No ROS Obtained: Yes All systems reviewed & no additional complaints except as documented Physical Exam General General appearance: alert and in no apparent distress Comment: Uncomfortable appearing male Head Head exam: atraumatic and normocephalic Eye Eye exam: Present PERRL and EOMI ENT ENT exam: Present mucous membranes moist Neck Neck exam: Present normal inspection Chest Chest inspection: Present normal inspection and symmetric chest wall rise Respiratory Respiratory exam: Present normal lung sounds bilaterally; Absent respiratory distress Cardiovascular Cardiovascular exam: Present regular rate and normal rhythm Abdominal Exam Abdominal exam: Present soft; Absent tenderness, guarding, rebound or rigidity Extremities Exam Extremities exam: Present normal inspection Back Exam Back exam: Present CVA tenderness (L) and paraspinal tenderness Comment: Moderate CVA tenderness to the left, and mild paraspinal tenderness to the lower lumbar spine Neurological Exam Neurological exam: Present alert and oriented X3 Psychiatric Psychiatric exam: Present normal affect Skin Skin exam: Present warm and dry Medical Decision Making Medical Records Medical records reviewed: Yes I reviewed the patient's medical records. Screening: Per USPSTF and CDC recommendations, given the prevalence of disease in our region, it is our hospital?s policy to screen for HIV and viral Hepatitis for all patients aged 18 and over and those with ongoing risk factors. Eduardo Inquiry Pt receiving controlled substance: No Eduardo was queried for this patient: No Vital Signs: 01/16/25 10:26 01/16/25 10:28 Temperature 97.9 F Temperature Source Oral Pulse Rate 89 Pulse Rate [Right] 91 H Respiratory Rate 20 Blood Pressure 139/84 Blood Pressure [Right Arm] 139/84 Blood Pressure Mean [Right Arm] 102 02 Sat by Pulse Oximetry 98 99 Oxygen Delivery Method Room Air Room Air Lab Data Lab Results 01/16/25 10:23: Urine Color Yellow, Urine Appearance Clear, Urine pH 5.5, Ur Specific [place] 1.010, Urine Protein Negative, Urine Glucose (UA) Negative, Urine Ketones Negative, Urine Blood Trace-i, Urine Nitrate Negative, Urine Bilirubin Negative, Urine Urobilinogen 0.2, Ur Leukocyte Esterase Negative, Urine RBC Occasional, Urine WBC None, Ur Squamous Epith Cells None, Amorphous Sediment Trace, Urine Bacteria None 01/16/25 10:32: WBC 10.6, RBC 5.02, Hgb 15.2, Hct 43.9, MCV 87.5, MCH 30.3, MCHC 34.6, RDW 14.0, Plt Count 269, MPV 8.8, Neut % (Auto) 67.9, Lymph % (Auto) 24.8, [place] % (Auto) 4.3, Eos % (Auto) 1.9, Baso % (Auto) 0.6, Neut # (Auto) 7.2, Lymph # (Auto) 2.6, [place] # (Auto) 0.5, Eos # (Auto) 0.2, Baso # (Auto) 0.1, Sodium 136, Potassium 4.1, Chloride 102, Carbon Dioxide 29, BUN 13, Creatinine 1.00, Estimated Creat Clear 95, Estimated GFR 82, Est GFR ( Amer) 99, Glucose 134 H, Calcium 9.5, Total Bilirubin 0.4, AST 36, ALT 35, Alkaline Phosphatase 103, Total Protein 7.3, Albumin 4.5, Globulin 2.8, Albumin/Globulin Ratio 1.6, Lipase 65 01/16/25 10:32 01/16/25 10:32 Orders (Tests/Meds): ED MEDICATIONS Generic Name Dose Route Start Last Admin Trade Name Freq PRN Reason Stop Dose Admin Morphine Sulfate 4 mg 01/16/25 12:02 Morphine 4mg/Ml Syringe IV 01/16/25 12:03 ONCE ONE Ondansetron HCl 4 mg 01/16/25 12:03 Ondansetron 4mg/2ml Vial IV 01/16/25 12:04 ONCE ONE Discontinued Medications Generic Name Dose Route Start Last Admin Trade Name Freq PRN Reason Stop Dose Admin Iopamidol 75 ml 01/16/25 10:58 01/16/25 10:59 Iopamidol-370 (76%);100ml Bottle IV 01/16/25 10:59 75 ml ONCE ONE Administration Ketorolac Tromethamine 15 mg 01/16/25 10:33 01/16/25 10:48 Ketorolac 30mg/Ml Vial IV 01/16/25 10:34 15 mg ONCE ONE Administration Sodium Chloride 10 ml 01/16/25 10:58 01/16/25 10:59 Sodium Chloride 0.9% 10ml Syr (Rad Only) IV 01/16/25 10:59 10 ml ONCE ONE Administration ORDERS Category Date Time Status CT abdomen pelvis w con Stat Cat Scan 01/16/25 10:28 Completed Complete Blood Count Auto Diff Stat Lab 01/16/25 10:32 Completed Comprehensive Metabolic Panel Stat Lab 01/16/25 10:32 Results Lactic Acid Stat Lab 01/16/25 10:25 Ordered Lipase Stat Lab 01/16/25 10:32 Results Urinalysis and Microscopic Stat Lab 01/16/25 10:23 Completed Medical Decision Narrative: 44-year-old male presents the emergency department with left-sided flank pain for several days, differential diagnose include but not limited to nephrolithiasis, acute UTI, acute pyelonephritis, ureterolithiasis, diverticulitis, bowel obstruction, acute lumbar sacral strain, degenerative disease lumbar spine, other musculoskeletal pain, pancreatitis among others. Discussed this patient's case with attending physician Dr. Marti Will obtain basic laboratory studies lipase lactate urinalysis CT abdomen pelvis with contrast, will give 15 mg IV Toradol for pain. CBC unremarkable CMP is notable for normal lipase Urinalysis is notable for occasional RBCs, trace hematuria, negative nitrites, negative leukocyte esterase, no bacteria, there is trace amorphous sediment. I reviewed the patient's CT abdomen pelvis with contrast on the corresponding radiologic report, no acute abnormality identified in the abdomen or pelvis. I discussed the results with the patient at the bedside, patient states he did get some relief from the Toradol initially but his pain has persisted, most likely musculoskeletal in nature versus ureteral spasm from possibly recently passed kidney stone, will give 4 mg IV morphine for pain 4 mg of Zofran for nausea, and p.o. 750 mg methocarbamol for spasms. Patient does have history of degenerative disease lumbar spine and CRPS, could be a component of this as well. Patient was given strict ED return precautions, prescribed p.o. muscle relaxer as needed for muscle spasm/pain, recommend ibuprofen Tylenol with alternation, follow-up with PCP patient was understanding agreed treatment plan/discharge plan. Critical Care Critical Care Time Critical Care Time: No
[2025-01-16 10:42] LABS: Appearance,Urine CLEAR (Clear); Bilirubin,Urine Negative (Negative); Blood, Urine TRACE-I (Negative); Color,Urine YELLOW (Yellow); Glucose,Urine (UA) Negative (Negative); Ketones,Urine Negative (Negative); Leukocyte Esterase,Urine Negative (Negative); Nitrate,Urine Negative (Negative); PH,Urine 5.5 (5.0-8.5); Protein,Urine Negative (Negative); Urobilinogen,Urine 0.2 EU/dl (0.2)
[2025-01-16 10:43] LABS: Basophils # 0.1 K/mm3 (0-0.2); Basophils % 0.6 % (0.1-2.0); Eosinophils # 0.2 Kmm3 (0.0-0.4); Eosinophils % 1.9 % (0.1-12.0); Hematocrit 43.9 % (42.0-52.0); Hemoglobin 15.2 g/dL (14.1-18.0); Immature Granulocytes # 0.05 10^3uL; Immature Granulocytes % 0.5 %; Lymphocytes # 2.6 K/mm3 (0.7-4.5); Lymphocytes % 24.8 % (10-50); Mean Corpuscular HGB Conc 34.6 g/dL (31.8-35.4); Mean Corpuscular Hemoglobin 30.3 pg (27.0-31.2); Mean Corpuscular Volume 87.5 fl (80-94); Mean Platelet Volume 8.8 fl (7.4-10.4); Monocytes # 0.5 K/mm3 (0.1-1.0); Monocytes % 4.3 % (1.7-9.3); Neutrophils # 7.2 K/mm3 (1.8-7.8); Neutrophils % 67.9 % (37.0-80.0); Nucleated Red Blood Cells # 0 10^3/uL; Nucleated Red Blood Cells % 0 %; Platelet Count 269 K/mm3 (142-424); Red Blood Count 5.02 M/mm3 (4.60-6.20); Red Cell Distribution Width-SD 44.7 fL; White Blood Count 10.6 K/mm3 (4.8-10.8)
[2025-01-16 10:48] LABS: Albumin Level 4.5 g/dl (3.5-5.0); Chloride 102 mmol/L (98-107); Potassium 4.1 mmoL/L (3.5-5.1); Sodium 136 mmol/L (136-145)
[2025-01-16] MEDS: KETOROLAC 30MG/ML VIAL 15 MG IV (10:48)
[2025-01-16 10:51] LABS: Alanine Aminotransferase 35 U/L (12-78); Albumin/Globulin Ratio 1.6 (1.1-1.8); Alkaline Phosphatase 103 U/L (38-126); Anion Gap 9.1 mEq/L (5-15); Aspartate Amino Transferase 36 U/L (17-59); Bilirubin,Total 0.4 mg/dl (0.2-1.3); Blood Urea Nitrogen 13 mg/dl (9-20); Calcium 9.5 mg/dl (8.4-10.2); Carbon Dioxide 29 mmol/L (22.0-30.0); Creatinine Clearance Estimated 95 mL/min (50-200); Estimated Glomerular Filt Rate 82 ml/min (>60); GFR (African American) 99 ML/MIN (>60); Globulin 2.8 g/dL (1.3-3.2); Glucose 134 mg/dl (74-100); Lipase 65 U/L (23-300); Total Protein,Serum 7.3 g/dl (6.3-8.2)
[2025-01-16] MEDS: IOPAMIDOL-370 (76%);100ML BOTTLE 75 ML IV (10:59)
[2025-01-16] MEDS: SODIUM CHLORIDE 0.9% 10ML SYR (RAD ONLY) 10 ML IV (10:59)
[2025-01-16 11:06] LABS: RBC,Urine Occasional #/hpf (0-3)
[2025-01-16 11:07] LABS: Amorphous Sediment,Urine Trace /lpf
[2025-01-16] MEDS: METHOCARBAMOL 500MG TABLET 750 MG PO (12:10)
[2025-01-16] MEDS: ONDANSETRON 4MG/2ML VIAL 4 MG IV (12:11)
[2025-01-16] MEDS: MORPHINE 4MG/ML SYRINGE 4 MG IV (12:11)
[2025-01-16 12:30] VITALS: BP 139/84; PULSE 87; RESP 18; TEMP 36.9; O2SAT 98
== END 2025-01-16 12:32 | disposition home or self-care (01) ==
PROVIDERS: Physician Assistant; Emergency Provider Emergency Medicine; PCP Nurse Practitioner Family
DX: R10.32 Left lower quadrant pain (principal); M54.59 Other low back pain; F17.210 Nicotine dependence, cigarettes, uncomplicated
CPT/HCPCS: 74177; 80053; 81001; 83690; 85025; 96374; 96375; 99285; J1885; J2270; J2405; Q9967